=== PATIENT | female | born 1990 | race Caucasian/White ===

== ENCOUNTER 2018-04-11 09:40 | Inpatient (IN) | payer BC ==
--- NOTE | 2018-04-11 12:09 | PDOC.FPROB ---
FMR OB H&P: HPI - History of Present Illness Chief Complaint: sent from clinic History of Present Illness: 27 yo at 8.1w by unsure LMP presents from clinic for concern of elevated BP and a1c at initial OB visit. She reports a history of GDM and GHTN with last (del 2015) but denies any elevated BP since that time. She thinks she was checked for DM after last (with random accuchecks) and was told her BG was always fine. She endorses polyuria, polydypsia, nausea with rare vomiting and occasional headaches. She has a history of "ocular" migraines but has not had one this . 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 denies: fever/chills Eyes: denies: eye pain, vision changes ENT: denies: nasal congestion, rhinorrhea Cardiovascular: denies: chest pain, palpitation Respiratory: denies: cough, congestion Gastrointestinal: reports: bloating, constipation. denies: abdominal pain Genitourinary (Female): reports: polyuria. denies: dysuria, hematuria, vaginal discharge, vaginal bleeding Musculoskeletal: denies: pain, tenderness Neurologic: denies: numbness, syncope Integumentary: denies: itching, rash, discoloration Endocrine: reports: polydipsia, polyuria. denies: cold intolerance, heat intolerance Psychological: reports: depression, other (denies SI/HI). denies: anxiety FMR OB H&P: Vital Signs - Maternal Vital signs: BP 127/65 P 74 T 98.7 RR 20 SPO2 96% on RA FMR OB H&P: Physical Exam - Physical Exam General: NAD, awake, alert and oriented HEENT: normocephalic and atraumatic, MMM, grossly normal hearing Neck: supple, trachea midline Chest: non-tender to palpation Heart: RRR, normal S1/S2 General: CTAB, no respiratory distress Abdomen: soft, non-tender Musculoskeletal: normal gait and station, pulses present Neurological: DTR +2, no focal deficit Skin: no rash, good tugor Psychiatric: intact recent and remote memory, good judgement and insight, normal mood and affect FMR OB H&P: A/P - Problem List (1) Diabetes mellitus affecting Current Visit: Yes Status: Acute Code(s): O24.919 - UNSP DIABETES MELLITUS IN , UNSPECIFIED TRIMESTER (2) Elevated blood pressure affecting in first trimester, antepartum Current Visit: Yes Status: Acute Code(s): O16.1 - UNSPECIFIED MATERNAL HYPERTENSION, FIRST TRIMESTER (3) Body mass index (BMI) 50-59.9, adult Current Visit: Yes Status: Acute Code(s): Z68.43 - BODY MASS INDEX (BMI) 50- 59.9, ADULT (4) Asthma affecting in first trimester Current Visit: Yes Status: Acute Code(s): O99.511 - DISEASES OF THE RESP SYS COMP , FIRST TRIMESTER; J45.909 - UNSPECIFIED ASTHMA, UNCOMPLICATED (5) Depression affecting Current Visit: Yes Status: Acute Code(s): O99.340 - OTH MENTAL DISORDERS COMPLICATING , UNSP TRIMESTER; F32.9 - MAJOR DEPRESSIVE DISORDER, SINGLE EPISODE, UNSPECIFIED (6) PCOS (polycystic ovarian syndrome) Current Visit: Yes Status: Acute Code(s): E28.2 - POLYCYSTIC OVARIAN SYNDROME Disposition: 27 yo at 8.1w by LMP here with likely cHTN and DM affecting 1. + test - 1T sono pending - PNV - Colace PRN constipation, monitor for n/v 2. Diabetes mellitus, Class B - Almost certainly pregestational at this point - Will need retinopathy screen outpatient - ACHS accuchecks and will plan to initiate insulin regimen here - Referral to MFM in place by PCP - ASA starting at 12 weeks 3. Elevated BP in clinic (141/90) - Will monitor q4h vitals here and discuss initiation of BP meds if indicated - 24h urine protein - CMP - TSH - EKG ordered 4. PCOS - aware 5. H/o C/S at 37.2w - Will look for records, presume LTCS at [facility] with Dr. Kidd - For arrest of dilation per patient - Monitor placentation 6. Migraines - aware 7. Depression - Continue sertraline, discussed r/b/a - No SI/HI 8. Asthma - No inhaler use in 2-3 years Discussion: Date/Time: 04/11/18 1207 This H&P was discussed with Dr. Chou who agree with the above documentation and plan. Signature: Mercedes Bone MD, PGY-3 Addendum - Attending - Attending Attestation Date/Time: 04/11/18 1527 I personally evaluated the patient and discussed the management with Dr. Bone. I agree with and repeated the History, Examination, Assessment and Plan documented above with any addition or exceptions noted below. Begin insulin. Labs as described.
[2018-04-11] MEDS ORDERED: Ondansetron PF 4 MG/2 ML Vial IVP PRN (12:27)
[2018-04-11] MEDS ORDERED: Ondansetron ODT 4 MG TAB PO PRN (12:27)
[2018-04-11] MEDS ORDERED: Acetaminophen 325 MG TAB PO PRN (12:27)
[2018-04-11] MEDS ORDERED: Promethazine HCl 25 MG/ML VIAL IM PRN (12:27)
[2018-04-11] MEDS ORDERED: Dextrose 50% Abboject 50 ML SYRINGE SLOW IVP PRN (12:31)
[2018-04-11] MEDS ORDERED: Dextrose 5% in Water 1,000 ML IV PRN (12:31)
[2018-04-11 12:33] LABS: ALT (SGPT) 36 U/L (8-55); AST (SGOT) 58 U/L (5-34); Albumin 3.7 g/dL (3.5-5.0); Alkaline Phosphatase 88 U/L (40-150); Anion Gap 14 mmol/L (10-20); BUN (Urea Nitrogen) 7 mg/dL (7.0-18.7); Bilirubin, Total 0.3 mg/dL (0.2-1.2); Calc. Creatinine Clearance 0 mL/min (70-130); Calcium 10.2 mg/dL (7.8-10.44); Carbon Dioxide 22 mmol/L (22-29); Chloride 103 mmol/L (98-107); Estimated GFR-MDRD Greater than 90; Globulin 3.5 g/dL (2.4-3.5); Glucose 150 mg/dL (70-105); Potassium 3.9 mmol/L (3.5-5.1); Protein, Total 7.2 g/dL (6.0-8.3); Sodium 135 mmol/L (136-145)
--- NOTE | 2018-04-11 14:41 | ULT ---
TRANSABDOMINAL AND TRANSVAGINAL PELVIC ULTRASOUND WITH GRAYSCALE, COLORFLOW, AND SPECTRAL DOPPLER CIERA GING: HISTORY: ultrasound for dates. FINDINGS: The uterus measures 10.6 x 5.3 x 5.5 cm. The right ovary measure 2.7 x 1.6 x 2 cm. The left ovary m easures 2.6 x 4.7 x 2 cm. Flow is demonstrated to both ovaries. No adnexal mass is seen. No free f luid is noted. A single live intrauterine gestation is seen with measurements corresponding to an estimated gestatio nal age of 7 weeks 1 day and an ALLEGRA of 11/27/2018. The crown-rump length measures 1.32 cm. Gestatio nal sac diameter is 1.84 cm. Yolk sac diameter is 0.36 cm. heart rate measures 163 beats per minute. No subchorionic hemorrhage is seen. IMPRESSION: Single live intrauterine of 7 weeks 1 day and estimated date of delivery of 11/27/2018. POS: OFF
--- NOTE | 2018-04-11 17:15 | EKG ---
Test Reason : Blood Pressure : / mmHG Vent. Rate : 075 BPM Atrial Rate : 075 BPM P-R Int : 148 ms QRS Dur : 086 ms QT Int : 404 ms P-R-T Axes : 005 013 023 degrees QTc Int : 451 ms Normal sinus rhythm with sinus arrhythmia Inferior infarct , age undetermined cannot be excluded Abnormal ECG No previous ECGs available Confirmed by BRET ROBERTS ([id number]) on 04/11/2018 5:15:40 PM Referred By: ALEJANDRA Confirmed By:BRET ROBERTS
[2018-04-11 19:00] LABS: Hep C IgG Ab Non-Reactive (NonReactive); Hep C Index 0.03 S/CO (0-0.79)
[2018-04-11] MEDS: Insulin Regular 300 UNITS/3 ML VIAL SC SCH (19:26)
[2018-04-11] MEDS ORDERED: NPH, Human Insulin Isophane 300 UNIT/3 ML VIAL SC SCH (21:00)
--- NOTE | 2018-04-12 07:03 | PDOC.OBMPN ---
FMR OB LDICU PN: Subj - Interval History Hospital Day: 2 Chief Complaint: elevated sugars Indentification: 27 y/o @ 7.2 wks by 1T US (ALLEGRA 11/27/18) Interval History: reports nasal congestion today, denies headahce, visual changes FMR OB LDICU PN: Obj - Maternal Vital signs: BP: 128/58 - Urine output I&O: 04/10/18 04/11/18 04/12/18 06:59 06:59 06:59 Output Total 630 Balance -630 FMR OB LDICU PN: Exam - Physical Exam General: NAD Heart: RRR, normal S1/S2 General: CTAB, no respiratory distress Abdomen: soft, non-tender Skin: no rash, good tugor R OB LDICU PN: Data - Labs Lab results: Laboratory Results - last 24 hr 04/11/18 04/11/18 04/11/18 12:06 12:06 16:02 Sodium 135 L Potassium 3.9 Chloride 103 Carbon Dioxide 22 Anion Gap 14 BUN 7 Creatinine 0.64 Estimated GFR (MDRD) Greater than 90 Glucose 150 H POC Glucose 119 H Calcium 10.2 Total Bilirubin 0.3 AST 58 H ALT 36 Alkaline Phosphatase 88 Serum Total Protein 7.2 Albumin 3.7 Globulin 3.5 Albumin/Globulin Ratio 1.1 L TSH 3rd Generation 1.7667 Hepatitis C Antibody 04/11/18 04/11/18 04/12/18 18:12 21:34 05:41 Sodium Potassium Chloride Carbon Dioxide Anion Gap BUN Creatinine Estimated GFR (MDRD) Glucose POC Glucose 168 H 143 H Calcium Total Bilirubin AST ALT Alkaline Phosphatase Serum Total Protein Albumin Globulin Albumin/Globulin Ratio TSH 3rd Generation Hepatitis C Antibody Non-Reactive R OB LDICU PN:A/P - Problem List (1) Transaminitis Current Visit: Yes Status: Acute Code(s): R74.0 - NONSPEC ELEV OF LEVELS OF TRANSAMNS & LACTIC ACID DEHYDRGNSE (2) Asthma affecting in first trimester Current Visit: Yes Status: Acute Code(s): O99.511 - DISEASES OF THE RESP SYS COMP , FIRST TRIMESTER; J45.909 - UNSPECIFIED ASTHMA, UNCOMPLICATED (3) Body mass index (BMI) 50-59.9, adult Current Visit: Yes Status: Acute Code(s): Z68.43 - BODY MASS INDEX (BMI) 50- 59.9, ADULT (4) Depression affecting Current Visit: Yes Status: Acute Code(s): O99.340 - OTH MENTAL DISORDERS COMPLICATING , UNSP TRIMESTER; F32.9 - MAJOR DEPRESSIVE DISORDER, SINGLE EPISODE, UNSPECIFIED (5) Diabetes mellitus affecting Current Visit: Yes Status: Acute Code(s): O24.919 - UNSP DIABETES MELLITUS IN , UNSPECIFIED TRIMESTER (6) Elevated blood pressure affecting in first trimester, antepartum Current Visit: Yes Status: Acute Code(s): O16.1 - UNSPECIFIED MATERNAL HYPERTENSION, FIRST TRIMESTER (7) PCOS (polycystic ovarian syndrome) Current Visit: Yes Status: Acute Code(s): E28.2 - POLYCYSTIC OVARIAN SYNDROME Discussion: Date/Time: 04/12/18 0659 27 yo at 8.1w by LMP here with likely cHTN and DM affecting 1. sIUP, first trimester - 1T sono reveals sIUP, ALLEGRA 11/27/18 - PNV - Colace PRN constipation, monitor for n/v 2. Diabetes mellitus - presgrestational, Class B - Will need retinopathy screen outpatient - ACHS accuchecks, NPH and regular insulin- titrate - Referral to MFM in place by PCP - ASA starting at 12 weeks 3. Elevated BP in clinic (141/90) - Will monitor q4h vitals here and discuss initiation of BP meds if indicated - 24h urine protein pending - CMP revealed elevated AST, TSH, EKG wnl. Neg Hep C - RUQ US reveals steatosis, cholelithiasis, 6mm dilation of CBD 4. PCOS - aware 5. H/o C/S at 37.2w - Will look for records, presume LTCS at [facility] with Dr. Kidd - For arrest of dilation per patient - Monitor placentation 6. Migraines - aware 7. Depression - Continue sertraline, discussed r/b/a - No SI/HI 8. Asthma - No inhaler use in 2-3 years 9. Transaminitis - work up as above, most likely NAFLD Dispo: Continue to titrate insulin dosage Addendum - Attending - Attending Attestation Date/Time: 04/12/18 1110 I personally evaluated the patient and discussed the management with Dr. Mckeon. I agree with the History, Examination, Assessment and Plan documented above with any addition or exceptions noted below. Likely will need to increase meal time and long acting. Continue to monitor.
--- NOTE | 2018-04-12 07:35 | ULT ---
GALLBLADDER ULTRASOUND: INDICATION: Transaminitis, 27-year-old patient. FINDINGS: There is prominent volume of the liver, approximately 19 cm in length. The liver is increased in ech ogenicity. There is a circumscribed focus of decreased echogenicity within the right hepatic lobe ap proximately 1.2 cm, too small to definitively characterize. Foci of increased echogenicity with post erior acoustic shadowing within the gallbladder present compatible with cholelithiasis. Where visual ized, the gallbladder wall is not pathologically thickened. Ann's sign is reported as negative. The common duct is mildly dilated at 6 mm, as visualized. No ascites of significance is seen. IMPRESSION: 1. Cholelithiasis. 2. Mild dilatation of biliary ductal system. Correlate with biliary laboratory values. 3. Probable hepatic steatosis. There is a circumscribed, slightly greater than 1 cm, hypoechoic foc us of the liver, too small to definitively characterize. This could represent a cyst. As conservati ve management, followup hepatic ultrasound is recommended to confirm size stability. POS: MARTIN
[2018-04-12] MEDS ORDERED: Loratadine 10 MG TAB PO PRN (08:41)
[2018-04-12] MEDS: Insulin Regular 300 UNITS/3 ML VIAL SC SCH ×3 (08:45→16:40)
[2018-04-12] MEDS: Prenatal Vitamin 1 TAB PO SCH ×2 (08:45→09:00)
[2018-04-12] MEDS ORDERED: Non-Formulary Item 1 EACH (Sertraline Hcl [Sertraline Hcl] 50 MG) PO SCH (09:00)
[2018-04-12] MEDS: NPH, Human Insulin Isophane 300 UNIT/3 ML VIAL SC SCH (09:03)
[2018-04-12 14:39] LABS: Urine Total Volume 2150 mL (600-1600)
[2018-04-12 15:04] LABS: Protein, Urine Less than 10 mg/dL (1-14)
[2018-04-12] MEDS ORDERED: NPH, Human Insulin Isophane 300 UNIT/3 ML VIAL SC SCH (21:00)
[2018-04-12] MEDS: Docusate 100 MG CAP PO PRN (21:18)
--- NOTE | 2018-04-13 07:01 | PDOC.OBMPN ---
FMR OB LDICU PN: Subj - Interval History Hospital Day: 2 Chief Complaint: elevated sugar Indentification: 27 y/o @ 8.3 wks by 1T US c/w LMP d(ALLEGRA 11/20/18) Interval History: doing well, abdominal pain imroved, denies hypoglycemic episodes FMR OB LDICU PN: Obj - Maternal Vital signs: BP: 104/55 - Urine output I&O: 04/11/18 04/12/18 04/13/18 06:59 06:59 06:59 Intake Total 360 450 Output Total 955 1350 Balance -595 -900 R OB LDICU PN: Exam - Physical Exam HEENT: normocephalic and atraumatic Heart: RRR, normal S1/S2 General: CTAB, no respiratory distress Abdomen: soft Musculoskeletal: normal gait and station Skin: no rash, good tugor R OB LDICU PN: Data - Labs Lab results: Laboratory Results - last 24 hr 04/12/18 04/12/18 04/12/18 11:02 14:16 16:24 POC Glucose 141 H 183 H Urine Protein Less than 10 Ur Collection Duration 24 Urine Total Volume 2150 H U Tot Protein 24h, Calc TNP 04/12/18 04/13/18 22:16 05:44 POC Glucose 121 H 113 H Urine Protein Ur Collection Duration Urine Total Volume U Tot Protein 24h, Calc R OB LDICU PN:A/P - Problem List (1) Transaminitis Current Visit: Yes Status: Acute Code(s): R74.0 - NONSPEC ELEV OF LEVELS OF TRANSAMNS & LACTIC ACID DEHYDRGNSE (2) Asthma affecting in first trimester Current Visit: Yes Status: Acute Code(s): O99.511 - DISEASES OF THE RESP SYS COMP , FIRST TRIMESTER; J45.909 - UNSPECIFIED ASTHMA, UNCOMPLICATED (3) Body mass index (BMI) 50-59.9, adult Current Visit: Yes Status: Acute Code(s): Z68.43 - BODY MASS INDEX (BMI) 50- 59.9, ADULT (4) Depression affecting Current Visit: Yes Status: Acute Code(s): O99.340 - OTH MENTAL DISORDERS COMPLICATING , UNSP TRIMESTER; F32.9 - MAJOR DEPRESSIVE DISORDER, SINGLE EPISODE, UNSPECIFIED (5) Diabetes mellitus affecting Current Visit: Yes Status: Acute Code(s): O24.919 - UNSP DIABETES MELLITUS IN , UNSPECIFIED TRIMESTER (6) Elevated blood pressure affecting in first trimester, antepartum Current Visit: Yes Status: Acute Code(s): O16.1 - UNSPECIFIED MATERNAL HYPERTENSION, FIRST TRIMESTER (7) PCOS (polycystic ovarian syndrome) Current Visit: Yes Status: Acute Code(s): E28.2 - POLYCYSTIC OVARIAN SYNDROME Discussion: Date/Time: 04/13/18 0659 1. sIUP, first trimester - 1T sono reveals sIUP c/w LMP, ALLEGRA 11/20/18 - PNV - Colace PRN constipation, monitor for n/v 2. Diabetes mellitus - presgrestational, Class B - Will need retinopathy screen outpatient - ACHS accuchecks, NPH and humalog- titrate - Referral to MFM in place by PCP - ASA starting at 12 weeks 3. Elevated BP in clinic (141/90) - Will monitor q4h vitals here and discuss initiation of BP meds if indicated - 24h urine protein collected - CMP revealed elevated AST, TSH, EKG wnl. Neg Hep C - RUQ US reveals steatosis, cholelithiasis, 6mm dilation of CBD 4. PCOS - aware 5. H/o C/S at 37.2w - presumed LTCS at [facility] with Dr. Kidd - For arrest of dilation per patient - Monitor placentation 6. Migraines - aware 7. Depression - Continue sertraline, discussed r/b/a - No SI/HI 8. Asthma - No inhaler use in 2-3 years 9. Transaminitis - work up as above, most likely NAFLD Dispo: Continue to titrate insulin dosage Addendum - Attending - Attending Attestation Date/Time: 04/13/18 3812 I personally evaluated the patient and discussed the management with Dr. Mckeon. I agree with the History, Examination, Assessment and Plan documented above with any addition or exceptions noted below. Increase LA and monitor for need for inc meal time.
[2018-04-13] MEDS: HumaLOG 300 UNITS/3 ML VIAL SC SCH ×3 (09:27→18:19)
[2018-04-13] MEDS: NPH, Human Insulin Isophane 300 UNIT/3 ML VIAL SC SCH (09:29)
[2018-04-13] MEDS: Prenatal Vitamin 1 TAB PO SCH ×2 (09:30)
--- NOTE | 2018-04-13 16:13 | PDOC.EVN ---
Event Note - Event Note Event Note: Discussed 190+ BG with nurse and she notes it was taken 30 minutes after eating because patient felt shaky. 2 hour PP WNL.
[2018-04-13] MEDS ORDERED: NPH, Human Insulin Isophane 300 UNIT/3 ML VIAL SC SCH (21:00)
[2018-04-14] MEDS: HumaLOG 300 UNITS/3 ML VIAL SC SCH ×3 (07:35→17:52)
--- NOTE | 2018-04-14 07:55 | PDOC.OBMPN ---
FMR OB LDICU PN: Subj - Interval History Hospital Day: 3 Chief Complaint: Uncontrolled pregestational DM Indentification: 27 year old at 8.4 wks by LMP/8.1 wk sono Interval History: Patient doing well this AM. No significant overnight events. FMR OB LDICU PN: Obj - Maternal Vital signs: BP: 127/61 HR: 90 RR: 18 Tmax: 99.2F Pox: 100% on RA Wt: 132.313 kg - Urine output I&O: 04/13/18 04/14/18 04/15/18 06:59 06:59 07:59 Intake Total 450 Output Total 1350 Balance -900 FMR OB LDICU PN: Exam - Physical Exam General: NAD, awake, alert and oriented HEENT: MMM, grossly normal vision, grossly normal hearing Heart: RRR, normal S1/S2, no murmurs/rubs/gallops, pulses present, no edema General: CTAB, no respiratory distress, good air movement Abdomen: soft, gravid, non-tender Musculoskeletal: pulses present, FROM in all four extremities Neurological: no tremor, no focal deficit Skin: no rash, capillary refill <2 seconds Psychiatric: intact recent and remote memory, good judgement and insight FMR OB LDICU PN: Data - Labs Lab results: Laboratory Results - last 24 hr 04/13/18 04/13/18 04/13/18 11:01 12:09 13:49 POC Glucose 159 H 106 192 H 04/13/18 04/13/18 04/14/18 15:26 21:23 06:01 POC Glucose 107 160 H 119 H 04/14/18 07:36 POC Glucose 126 H FMR OB LDICU PN:A/P - Problem List (1) Diabetes mellitus affecting Current Visit: Yes Status: Acute Code(s): O24.919 - UNSP DIABETES MELLITUS IN , UNSPECIFIED TRIMESTER (2) Asthma affecting in first trimester Current Visit: Yes Status: Acute Code(s): O99.511 - DISEASES OF THE RESP SYS COMP , FIRST TRIMESTER; J45.909 - UNSPECIFIED ASTHMA, UNCOMPLICATED (3) Body mass index (BMI) 50-59.9, adult Current Visit: Yes Status: Acute Code(s): Z68.43 - BODY MASS INDEX (BMI) 50- 59.9, ADULT (4) Cholelithiasis Current Visit: Yes Status: Acute Code(s): K80.20 - CALCULUS OF GALLBLADDER W /O CHOLECYSTITIS W/O OBSTRUCTION (5) Depression affecting Current Visit: Yes Status: Acute Code(s): O99.340 - OTH MENTAL DISORDERS COMPLICATING , UNSP TRIMESTER; F32.9 - MAJOR DEPRESSIVE DISORDER, SINGLE EPISODE, UNSPECIFIED (6) Elevated blood pressure affecting in first trimester, antepartum Current Visit: Yes Status: Acute Code(s): O16.1 - UNSPECIFIED MATERNAL HYPERTENSION, FIRST TRIMESTER (7) Hepatic steatosis Current Visit: Yes Status: Acute Code(s): K76.0 - FATTY (CHANGE OF) LIVER, NOT ELSEWHERE CLASSIFIED (8) Transaminitis Current Visit: Yes Status: Acute Code(s): R74.0 - NONSPEC ELEV OF LEVELS OF TRANSAMNS & LACTIC ACID DEHYDRGNSE Disposition: 27 year old at 8.4 wks presents for monitoring of DM type II, uncontrolled 1. sIUP, first trimester - 1T (8.1 wk) sono reveals sIUP c/w LMP, ALLEGRA 11/20/18 - PNV - Colace PRN constipation 2. Diabetes mellitus, type II - presgrestational, Class B - Will need retinopathy screen outpatient - FBG and 2h PP BG checks, NPH and humalog; titrate to achieve FBG <95 and 2h PP BG <120 - Will increase short acting insulin at dinner time to 12 units; will increase NPH at nighttime to 22 units as the 2h PP at dinner time and FBG are not at goal - Referral to MFM in place by PCP - ASA starting at 12 weeks 3. Elevated BP in clinic (141/90) - Will monitor q4h vitals here and discuss initiation of BP meds if indicated - 24h urine protein collected - CMP revealed elevated AST, but TSH, EKG wnl. Neg Hep C - RUQ US reveals steatosis, cholelithiasis, 6mm dilation of CBD; patient currently asymptomatic 4. PCOS - aware 5. H/o C/S at 37.2w - presumed LTCS at [facility] with Dr. Kidd for arrest of dilation per patient - Monitor placentation 6. Migraines - aware; currently asymptomatic 7. Depression - Continue sertraline, discussed r/b/a - No SI/HI - Patient recently seen in [facility] and was doing very well and stable on medication 8. Asthma - No inhaler use in 2-3 years 9. Transaminitis - work up as above, most likely NAFLD Dispo: Continue to titrate insulin dosage and make changes as above. Plan for possible d/c tomorrow with further titration/management as outpatient. Discussion: Date/Time: 04/14/18 4072 This H&P was discussed with Dr. Bautista who agrees with the above documentation and plan. Signature: Uma Aiken, DO PGY-2 Addendum - Attending - Attending Attestation Date/Time: 04/14/18 1047 I personally evaluated the patient and discussed the management with Dr. Aiken I agree with the History, Examination, Assessment and Plan documented above with any addition or exceptions noted below. 27 year old at 8.4 wks by LMP/8.1 wk sono with white class B diabetes. Glucose reviewed and agree with plan to increase PM NPH and dinnertime fast acting as those values not at goal. Pt should also be eating a small snack with protein/fat/CHO at bedtime to lower her fasting glucose. Pt has multiple elevated values but that is due to glucose being checked at inappropriate times. Will discuss with nursing to check fasting and 2 hrs post prandially only. Dispo: Continue inpatient insulin titration. Anticipate d/c to home tomorrow pending glucose levels. ]
[2018-04-14] MEDS: Prenatal Vitamin 1 TAB PO SCH ×2 (09:16→09:21)
[2018-04-14] MEDS: Docusate 100 MG CAP PO PRN (09:20)
[2018-04-14] MEDS: NPH, Human Insulin Isophane 300 UNIT/3 ML VIAL SC SCH (09:21)
[2018-04-14] MEDS ORDERED: HumaLOG 300 UNITS/3 ML VIAL SC SCH ×2 (17:00)
[2018-04-14] MEDS ORDERED: NPH, Human Insulin Isophane 300 UNIT/3 ML VIAL SC SCH (21:00)
[2018-04-15] MEDS ORDERED: HumaLOG 300 UNITS/3 ML VIAL SC SCH (07:30)
[2018-04-15 08:09] VITALS: BP 120/56; TEMP 98.8
--- NOTE | 2018-04-15 08:29 | PDOC.OBAPN ---
Addendum entered and electronically signed by Uma Aiken DO 04/15/18 08 :47: Date/Time: 04/15/18826 This H&P was discussed with Dr. Bautista who agrees with the above documentation and plan. Uma Aiken DO PGY-2 Original Note: FMR OB AP PN: Sub - Interval History Hospital Day: 4 Chief Complaint: Uncontrolled Pregestational DM Indentification: 27 year old at 8.5 wks by LMP/8.1 wk sono Interval History: Doing well. No significant overnight events. FMR OB AP PN: Obj - Maternal Vital signs: BP: 119/59 HR: 82 RR: 18 Tmax: 98.3F Pox: 100% on RA Wt: 132.3 kg - Urine output I&O: 04/14/18 04/15/18 04/16/18 05:59 06:59 06:59 Output Total Balance FMR OB AP PN: Exam - Physical Exam General: NAD, awake, alert and oriented HEENT: MMM, grossly normal vision, grossly normal hearing Heart: RRR, pulses present, no edema General: no respiratory distress, good air movement Abdomen: soft, non-tender Musculoskeletal: pulses present, FROM in all four extremities Neurological: no tremor, no focal deficit Skin: no rash, capillary refill <2 seconds Lymphatic: no unusual bruising or bleeding, no purpura Psychiatric: intact recent and remote memory, good judgement and insight FMR OB AP PN: Data - Labs Lab results: Laboratory Results - last 24 hr 04/14/18 04/14/18 04/14/18 07:36 11:07 15:30 POC Glucose 126 H 112 H 97 04/14/18 04/15/18 04/15/18 20:31 06:17 07:57 POC Glucose 84 98 103 FMR OB AP PN: A/P - Problem List (1) Diabetes mellitus affecting Status: Acute Code(s): O24.919 - UNSP DIABETES MELLITUS IN , UNSPECIFIED TRIMESTER (2) Asthma affecting in first trimester Status: Acute Code(s): O99.511 - DISEASES OF THE RESP SYS COMP , FIRST TRIMESTER; J45.909 - UNSPECIFIED ASTHMA, UNCOMPLICATED (3) Body mass index (BMI) 50-59.9, adult Status: Acute Code(s): Z68.43 - BODY MASS INDEX (BMI) 50-59.9, ADULT (4) Cholelithiasis Status: Acute Code(s): K80.20 - CALCULUS OF GALLBLADDER W/O CHOLECYSTITIS W/O OBSTRUCTION (5) Depression affecting Status: Acute Code(s): O99.340 - [facility] MENTAL DISORDERS COMPLICATING , UNSP TRIMESTER; F32.9 - MAJOR DEPRESSIVE DISORDER, SINGLE EPISODE, UNSPECIFIED (6) Elevated blood pressure affecting in first trimester, antepartum Status: Acute Code(s): O16.1 - UNSPECIFIED MATERNAL HYPERTENSION, FIRST TRIMESTER (7) Hepatic steatosis Status: Acute Code(s): K76.0 - FATTY (CHANGE OF) LIVER, NOT ELSEWHERE CLASSIFIED (8) Transaminitis Status: Acute Code(s): R74.0 - NONSPEC ELEV OF LEVELS OF TRANSAMNS & LACTIC ACID DEHYDRGNSE Disposition: 27 year old at 8.5 wks presents for monitoring of DM type II, uncontrolled 1. sIUP, first trimester - 1T (8.1 wk) sono reveals sIUP c/w LMP, ALLEGRA 11/20/18 - PNV - Colace PRN constipation 2. Diabetes mellitus, type II - presgrestational, Class B - Will need retinopathy screen outpatient - FBG and 2h PP BG checks, NPH and humalog; titrate to achieve FBG <95 and 2h PP BG <120 - Advised patient to decrease dinner time insulin to 10 units from 12 units to avoid hypoglycemia - Referral to MFM in place by PCP - ASA starting at 12 weeks - Patient advised to continue keeping log of BG and follow up with PCP in next week; patient has appt with PCP for next Monday 3. Elevated BP in clinic (141/90) - Will monitor q4h vitals here and discuss initiation of BP meds if indicated; BP has been well controlled - 24h urine protein collected <300 - CMP revealed elevated AST, but TSH, EKG wnl. Neg Hep C - RUQ US reveals steatosis, cholelithiasis, 6mm dilation of CBD; patient currently asymptomatic 4. PCOS - aware 5. H/o C/S at 37.2w - presumed LTCS at [facility] with Dr. Kidd for arrest of dilation per patient - Monitor placentation 6. Migraines - aware; currently asymptomatic 7. Depression - Continue sertraline, discussed r/b/a - No SI/HI - Patient recently seen in [facility] and was doing very well and stable on medication 8. Asthma - No inhaler use in 2-3 years 9. Transaminitis - work up as above, most likely NAFLD Dispo: Plan for d/c home today with close follow up. Advised patient to check FBG and 2h PP BG over the course of the next week and bring log to appt with Dr. Barrios next Monday. Discussion: Date/Time: 04/15/18826 This H&P was discussed with [] and [] who agree with the above documentation and plan. Addendum - Attending - Attending Attestation Date/Time: 04/16/18840 I personally evaluated the patient and discussed the management with Dr. Aiken I agree with the History, Examination, Assessment and Plan documented above with any addition or exceptions noted below Glucose at goal or below. Stable for d/c o home today
[2018-04-15] MEDS: NPH, Human Insulin Isophane 300 UNIT/3 ML VIAL SC SCH (08:54)
[2018-04-15] MEDS: Prenatal Vitamin 1 TAB PO SCH ×2 (08:54→09:03)
--- NOTE | 2018-04-16 14:40 | DIS ---
DATE OF ADMISSION: 04/11/2018 DATE OF DISCHARGE: 04/15/2018 ADMITTING ATTENDING: Dr. Gatito Chou. DISCHARGE ATTENDING: Dr. Zuleyka Bautista. RESIDENT: Dr. Uma Aiken. PROCEDURES: 1. EKG showed normal sinus rhythm with sinus arrhythmia and OR interval of 148 milliseconds and a QTc of 451 milliseconds. 2. Pelvis ultrasound showed a single live intrauterine at 7 weeks and 1 day and an estimated date of delivery of 11/27/2018. 3. Abdominal ultrasound showed cholelithiasis with mild dilation of biliary duct system. There was probable hepatic steatosis. There was circumscribed, slightly greater than 1 cm, hypoechoic focus of the liver that was too small to definitively characterize. This could represent a cyst. Followup hepatic ultrasound recommended to confirm size and stability. DISCHARGE DIAGNOSES: 1. Pre-gestational diabetes class B. 2. Single intrauterine . 3. Elevated blood pressure without a diagnosis of hypertension. 4. Polycystic ovarian syndrome. 5. History of at 37 and 2 weeks. 6. Migraines. 7. Depression. 8. Asthma. 9. Cholelithiasis. 10. Liver steatosis. DISCHARGE MEDICATIONS: 1. vitamin 1 tablet p.o. daily. 2. Sertraline 50 mg p.o. daily. 3. Humalog 8 units before breakfast, 8 units for lunch, 10 units before dinner. 4. NPH, human insulin 22 units subcu at bedtime. 5. NPH, human insulin 16 units subcu q.a.m. HISTORY OF PRESENT ILLNESS/HOSPITAL COURSE: This is a very pleasant 27-year-old female who was sent over from [facility]. She is a G2, P1-0-0-1, estimated to be 8 weeks and 1 day by an unsure LMP. The patient was sent over initially for elevated blood pressure and a hemoglobin A1c noted to be greater than 8%. The patient did report a history of gestational diabetes and gestational hypertension with previous . The patient denied any elevated blood pressure since that time. The patient thinks she was checked for diabetes after her last and was told that her blood glucose was always fine. She does endorse polyuria, polydipsia, nausea with rare vomiting and occasional headaches. The patient has a history of ocular migraines, but has not had one during this . The patient was admitted to antepartum for monitoring of blood glucose and blood pressures. A pelvic ultrasound was performed to confirm dating. Q.4 hours vitals were done during the hospitalization and no further elevated pressures were noted except for one at 144/62. Pre-E labs were performed for baseline evaluation and all were noted to be negative. The patient was started on NPH and Humalog for control of her class B pre-gestational diabetes. She was titrated to a goal with fasting blood glucose less than 95 and 2-hour postprandial blood glucose less than 120. The patient was monitored on this insulin regimen and did very well. She is advised to continue keeping a log of her blood glucose and to follow up with her primary care upon discharge from the hospital. The patient was also advised to start aspirin at 12 weeks' gestation. The patient is to follow up with [facility] as an outpatient. The patient does have a history of at 37 and 2 weeks. This was presumptively done at [facility] by Dr. Kidd and was a low-transverse delivery for arrest of dilation. The patient is to continue following routinely for the visits with Dr. Barrios at [facility]. The importance of good sugar control was discussed at length with patient and she understands the risks of not following up, to include stillbirth. DISPOSITION: Stable. DISCHARGE INSTRUCTIONS: 1. Location: Home. 2. Activity: No restrictions. 3. Diet: Consistent carb. FOLLOWUP: The patient is to follow up with Dr. Barrios at [facility] within 7 days of discharge from the hospital. Job ID: [id number] MTDD
== END 2018-04-15 10:25 | disposition home or self-care (01) | DRG 832 ==
LOC: 3SE 11:25
PROVIDERS: ADMIT Emergency Medicine; ATTEND Emergency Medicine
DX: O24.111 Pre-existing type 2 diabetes mellitus, in pregnancy, first trimester (principal); O16.1 Unspecified maternal hypertension, first trimester; E11.9 Type 2 diabetes mellitus without complications; Z3A.08 8 weeks gestation of pregnancy; O34.211 Maternal care for low transverse scar from previous cesarean delivery; O99.341 Other mental disorders complicating pregnancy, first trimester; F32.9 Major depressive disorder, single episode, unspecified; O99.511 Diseases of the respiratory system complicating pregnancy, first trimester; J45.909 Unspecified asthma, uncomplicated; R74.0 Nonspecific elevation of levels of transaminase and lactic acid dehydrogenase [LDH]; O99.281 Endocrine, nutritional and metabolic diseases complicating pregnancy, first trimester; E28.2 Polycystic ovarian syndrome; O99.611 Diseases of the digestive system complicating pregnancy, first trimester; K80.20 Calculus of gallbladder without cholecystitis without obstruction; O99.351 Diseases of the nervous system complicating pregnancy, first trimester; G43.909 Migraine, unspecified, not intractable, without status migrainosus
CPT/HCPCS: 36415; 36416; 76705; 76856; 80053; 84156; 84443; 86803; 93005; 93010; J1815; Q0162

== ENCOUNTER 2018-06-16 20:07 | Emergency (ER) | payer BC ==
[2018-06-16 20:56] LABS: #Basophils 0.1 thou/uL (0.0-0.2); #Eosinphils 0.2 thou/uL (0.0-0.7); #Lymphocytes 3.4 thou/uL (1.20-3.40); #Monocytes 0.6 thou/uL (0.11-0.59); #Neutrophils 6.6 thou/uL (1.40-6.50); %Basophils 0.6 % (0.0-1.0); %Eosinophils 1.5 % (0.0-10.0); %Monocytes 5.8 % (0.0-10.0); %Neutrophils 61.2 % (42.0-75.0); Hemoglobin 11.2 g/dL (12.0-16.0); Mean Corpuscular HGB CONC 33.1 g/dL (32.0-36.0); Mean Corpuscular Hemoglobin 26.5 pg (27.0-31.0); Mean Corpuscular Volume 80.1 fL (78.0-98.0); Mean Platelet Volume 7.3 fL (7.4-10.4); Platelet Count 429 thou/uL (130-400); RBC Distribution Width 12.6 % (11.5-14.5); Red Blood Cell (RBC) Count 4.24 mill/uL (4.20-5.40); White Blood Cell (WBC) Count 10.8 thou/uL (4.8-10.8)
[2018-06-16 21:10] LABS: Bilirubin Negative (Negative); Blood, Urine Negative (Negative); Clarity CLEAR (Clear); Glucose, Urine (Dipstick) Negative (Negative); Leukocyte Negative (Negative); Nitrite Negative (Negative); Protein, Urine (Dipstick) Negative (Neg-Trace); Urobilinogen 0.2 mg/dL (0.2-1.0)
[2018-06-16 21:17] LABS: ALT (SGPT) 12 U/L (8-55); AST (SGOT) 12 U/L (5-34); Albumin 3.5 g/dL (3.5-5.0); Alkaline Phosphatase 71 U/L (40-150); Anion Gap 12 mmol/L (10-20); BUN (Urea Nitrogen) 5 mg/dL (7.0-18.7); Bilirubin, Total Less than 0.2 mg/dL (0.2-1.2); Calc. Creatinine Clearance 0 mL/min (70-130); Calcium 9.3 mg/dL (7.8-10.44); Carbon Dioxide 23 mmol/L (22-29); Chloride 106 mmol/L (98-107); Estimated GFR-MDRD Greater than 90; Globulin 3.3 g/dL (2.4-3.5); Glucose 94 mg/dL (70-105); Protein, Total 6.8 g/dL (6.0-8.3); Sodium 137 mmol/L (136-145)
--- NOTE | 2018-06-16 21:55 | ULT ---
LIMITED OB ULTRASOUND: 06/16/18 HISTORY: Abdominal pain. Patient is 17 weeks . TECHNIQUE: Sagittal and transverse imaging of a gravid uterus is performed. FINDINGS: Single intrauterine gestation. Variable presentation. Placenta is on the left side. Limited evaluation of the cervix. Presence or absence of previa cannot be assessed on this exam. heart tones with a rate of 160 beats per minute. BIOMETRY: BPD 3.79 cm 17 weeks, 4 days Head circumference 14.30 cm 17 weeks, 4 days Abdominal circumference 11.77 cm 17 weeks, 4 days Femur length 2.49 cm 17 weeks, 4 days Average age by sonography is 17 weeks, 4 days. Estimated weight is 198 grams. IMPRESSION: 1. Limited evaluation due to body habitus. Single intrauterine gestation with heart tones. Average age by sonography is 17 weeks, 4 days. 2. Limited evaluation of the cervix. The presence or absence of previa cannot be assessed on thi s examination. POS: [facility]
--- NOTE | 2018-06-16 22:40 | MRI ---
Exam: MRI abdomen without contrast HISTORY: Right lower quadrant pain, x2 weeks ago. Since then, intermittent diffuse abdominal pain. 17 week patient Comparison none Correlation: Gallbladder ultrasound 04/12/2018 FINDINGS: There is appropriate signal intensity in the visualized solid organs. Note, there are small T2 hyperi ntensities throughout the pancreas, incompletely evaluated. No evidence of hydronephrosis There is evidence of cholelithiasis. MRCP is limited in evaluation. Common bile duct cannot be adequately assessed on the images provided Visualized alimentary canal does not demonstrate any obstruction. Ileocecal junction is normal. Appen ruddy is not appreciated. Nevertheless, no obvious inflammation at the cecal apex. Intrauterine gestation is noted IMPRESSION: 1. Cholelithiasis. Suboptimal MRCP 2. No MR evidence of inflammation of the cecal apex. Appendix is difficult to appreciate on the curre nt examination. Report will be finalized after images reviewed with abdomen radiologist. Prelim findings discussed with Dr. Allen 06/16/2018 at 10:38 PM ADDENDUM: Examination was reviewed in conjunction with Dr. Francis who is in agreement. Transcribed Date/Time: 06/16/2018 10:46 PM
== END 2018-06-16 22:55 | disposition home or self-care (01) ==
LOC: ERS 20:07
DX: O99.89 Other specified diseases and conditions complicating pregnancy, childbirth and the puerperium (principal); R10.31 Right lower quadrant pain; Z3A.17 17 weeks gestation of pregnancy
CPT/HCPCS: 36415; 72195; 74181; 76815; 80053; 81003; 85025; 87086

== ENCOUNTER 2018-08-20 10:32 | Day surgery (SDC) | payer BC ==
[2018-08-20 11:09] VITALS: BMI 50.8
[2018-08-20] MEDS ORDERED: hydrALAZINE 20 MG/ML VIAL SLOW IVP PRN (11:59)
--- NOTE | 2018-08-20 12:04 | PDOC.FPROB ---
FMR OB H&P: HPI - History of Present Illness Chief Complaint: BP elevated History of Present Illness: 27 y/o , at 26.6 by 7.1 wk sono, presents to L&D after being sent over from [facility] because of a BP of 156/86. Due date 11/20/18. FHT 155 on initial triage monitoring. The patient states her BP was 162/107 this morning and 140/87 last night. She states that on Monday she started having a severe headache that was associated with dizziness and visual disturbances. This is new and has never occurred before. She states that the dizziness and visual disturbances fade away if she sits down and rests for a few minutes. The patient stated she does not have a headache or visual changes at the time I saw her. X2 days ago the patient had a "GI bug," with nausea, vomiting and diarrhea, that has now subsided. She has a history of pre-eclampsia with her last , gestational diabetes (on insulin), Cholelithiasis and Chronic HTN. Patient denies any any abdominal pain, seizures, chest pain, loss of fluid, vaginal bleeding, or contractions. She states she has been feeling the baby move. Primary Care Physician: Dr. Sonny Mckeon DO. FMR OB H&P: Current - Care : 2 Para: 1 Gestational age: 26.6 Due date: 11/20/18 Dating Criteria: 7.1 wk sono - OB Labs Blood type: O RH: positive Antibody Screen: negative HIV: negative RPR: negative HepBsAg: negative Rubella: immune Quad screen: unknown Urine drug screen: not done Gonorrhea: negative Chlamydia: negative Pap Smear: negative A1c: 5.9 - First Trimester Ultrasound First trimester: 7.1 week sono 26.6 wks FMR OB H&P: History - Past Medical History PMH: Pre-eclampsia with first , requiring a at 36 weeks. 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 - Family History Family History: Patient denies any family medical history. Denies any HTN or DM in family. FMR OB H&P: Medications - Current Home Medications: Medication Instructions Recorded Confirmed Type Vitamin 1 tablet PO DAILY 04/11/18 04/11/18 History Sertraline HCl 50 mg PO DAILY 04/11/18 04/11/18 History Aspirin [Adult Aspirin Regimen] 81 mg PO 08/20/18 History HumaLOG [HumaLOG Vial] 8 unit SC 1700 08/20/18 History HumaLOG [HumaLOG Vial] 10 units SC 0730,1130 08/20/18 History NPH, Human Insulin Isophane 20 unit SC DAILY 08/20/18 History [HumuLIN N] NPH, Human Insulin Isophane 25 unit SC HS 08/20/18 History [HumuLIN N] Allergies/Adverse Reactions: Allergies Allergy/AdvReac Type Severity Reaction Status Date / Time No Known Allergies Allergy Unverified 08/20/18 11:08 FMR OB H&P: ROS - Review of Systems General: denies: fever/chills Eyes: reports: vision changes ("Like looking through a fish bowl"). denies: eye pain, double vision, scotomas, floaters ENT: denies: sore throat Cardiovascular: denies: chest pain, palpitation, edema Respiratory: denies: cough, shortness of breath Gastrointestinal: reports: nausea, vomiting, diarrhea. denies: abdominal pain Genitourinary (Female): denies: incontinence, dysuria, hematuria, vaginal discharge, vaginal bleeding, contractions Musculoskeletal: reports: swelling (bilateral feet). denies: pain Neurologic: reports: weakness (with dizzy spells), headache. denies: numbness, syncope, seizures, loss of counsciousness Integumentary: denies: rash, discoloration Psychological: reports: depression, anxiety FMR OB H&P: Vital Signs - Maternal Vital signs: 118/55 BP, 103 HR - Heart Tones Baseline: 155 [place] contractions every: no contractions FMR OB H&P: Physical Exam - Physical Exam General: NAD, awake, alert and oriented HEENT: normocephalic and atraumatic, PERRLA, EOMI, MMM, conjunctiva clear, no scleral icterus, grossly normal vision, grossly normal hearing, good dention Neck: supple, FROM, trachea midline, no LAD, no JVD, other (Thyroid normal size) Chest: non-tender to palpation, no lesions Heart: RRR, normal S1/S2, no murmurs/rubs/gallops, pulses present, no edema General: CTAB, no respiratory distress, good air movement, no rales/rhonchi, no wheezing, no retractions Abdomen: soft (obese abdomen), gravid, bowel sound present Deviation from normal: Tenderness to palpation over RUQ. Musculoskeletal: normal gait and station, pulses present, FROM in all four extremities, no atrophy Skin: no rash, no jaundice Lymphatic: no unusual bruising or bleeding, no purpura, no petechia Psychiatric: intact recent and remote memory, good judgement and insight, normal mood and affect FMR OB H&P: Results - Labs Lab results: Laboratory Tests 08/20/18 11:53 Glucose 111 H Laboratory Tests 08/20/18 08/20/18 11:53 11:53 WBC 12.5 H Hgb 10.9 L Hct 34.6 L Plt Count 454 H Uric Acid 2.1 L FMR OB H&P: A/P - Problem List (1) Chronic hypertension affecting Current Visit: Yes Status: Chronic Code(s): O10.919 - UNSP PRE-EXISTING HTN COMP , UNSP TRIMESTER (2) Diabetes mellitus affecting Current Visit: No Status: Chronic Code(s): O24.919 - UNSP DIABETES MELLITUS IN , UNSPECIFIED TRIMESTER (3) Cholelithiasis Current Visit: No Status: Chronic Code(s): K80.20 - CALCULUS OF GALLBLADDER W/O CHOLECYSTITIS W/O OBSTRUCTION (4) Depression affecting Current Visit: No Status: Acute Code(s): O99.340 - OTH MENTAL DISORDERS COMPLICATING , UNSP TRIMESTER; F32.9 - MAJOR DEPRESSIVE DISORDER, SINGLE EPISODE, UNSPECIFIED (5) Anxiety disorder affecting , antepartum Current Visit: Yes Status: Chronic Code(s): O99.340 - OTH MENTAL DISORDERS COMPLICATING , UNSP TRIMESTER; F41.9 - ANXIETY DISORDER, UNSPECIFIED (6) Body mass index (BMI) 50-59.9, adult Current Visit: No Status: Chronic Code(s): Z68.43 - BODY MASS INDEX (BMI) 50 -59.9, ADULT (7) IUP (intrauterine ), incidental Current Visit: Yes Status: Acute Code(s): Z34.90 - ENCNTR FOR SUPRVSN OF NORMAL , UNSP, UNSP TRIMESTER Discussion: 27 y/o F , @ 26.6 wks dated by 7.1 wk crowo, being triaged in L&D for elevated BP's found in clinic visit this morning with [facility]. 1. Chronic HTN, rule out pre-eclampsia -Ordered CBC, CMP, Urine protein quant and urine creatinine -Monitor BP's -BP's Observed so far 126/63, 118/55. -No Headache or vision disturbance while being seen in hospital. 2. IUP, 2nd trimester -26.6 wks 3. Gestational DM, insulin dependent -on Humalog 10, 8, 10 units TID; Levamir 20, 25 units 4. Hx of Pre-eclampsia in prior -ASA 81 mg daily 5. Cholelithiasis -RUQ abdominal pain, most likely caused by cholelithiasis vs. Pre-eclampsia vs. HELLP Syndrome. Will rule out via labs. -Sonogram on 04/12/18 6. Anxiety D/O -On Sertraline 50 mg Daily -Patient states her anxiety and depression have been slightly increased since being . 7. Major Depressive Disorder -Sertraline 50 mg daily 8. Full Code
[2018-08-20 12:10] LABS: #Eosinphils 0.1 thou/uL (0.0-0.7); #Lymphocytes 2.5 thou/uL (1.20-3.40); #Monocytes 0.6 thou/uL (0.11-0.59); #Neutrophils 9.3 thou/uL (1.40-6.50); %Basophils 0.4 % (0.0-1.0); %Eosinophils 0.7 % (0.0-10.0); %Lymphocytes 20.2 % (21.0-51.0); %Monocytes 4.5 % (0.0-10.0); %Neutrophils 74.3 % (42.0-75.0); Hemoglobin 10.9 g/dL (12.0-16.0); Mean Corpuscular HGB CONC 31.4 g/dL (32.0-36.0); Mean Corpuscular Hemoglobin 24.9 pg (27.0-31.0); Mean Corpuscular Volume 79.1 fL (78.0-98.0); Mean Platelet Volume 7.6 fL (7.4-10.4); Platelet Count 454 thou/uL (130-400); RBC Distribution Width 12.6 % (11.5-14.5); Red Blood Cell (RBC) Count 4.37 mill/uL (4.20-5.40); White Blood Cell (WBC) Count 12.5 thou/uL (4.8-10.8)
[2018-08-20 12:45] LABS: ALT (SGPT) 10 U/L (8-55); AST (SGOT) 11 U/L (5-34); Albumin 3.3 g/dL (3.5-5.0); Alkaline Phosphatase 83 U/L (40-150); Anion Gap 12 mmol/L (10-20); BUN (Urea Nitrogen) 6 mg/dL (7.0-18.7); Bilirubin, Total 0.2 mg/dL (0.2-1.2); Calc. Creatinine Clearance 326 mL/min (70-130); Calcium 9.6 mg/dL (7.8-10.44); Carbon Dioxide 21 mmol/L (22-29); Chloride 106 mmol/L (98-107); Estimated GFR-MDRD Greater than 90; Globulin 3.4 g/dL (2.4-3.5); Glucose 111 mg/dL (70-105); Potassium 3.6 mmol/L (3.5-5.1); Protein, Total 6.7 g/dL (6.0-8.3); Sodium 135 mmol/L (136-145); Uric Acid 2.1 mg/dL (2.6-6.0)
[2018-08-20 13:03] LABS: Creatinine, Urine 135.18 mg/dL (47-110)
== END 2018-08-20 15:07 | disposition home or self-care (01) ==
LOC: L&D/OP 10:32
PROVIDERS: ATTEND Family Medicine
DX: O10.012 Pre-existing essential hypertension complicating pregnancy, second trimester (principal); O24.414 Gestational diabetes mellitus in pregnancy, insulin controlled; O99.612 Diseases of the digestive system complicating pregnancy, second trimester; K80.20 Calculus of gallbladder without cholecystitis without obstruction; O99.342 Other mental disorders complicating pregnancy, second trimester; F41.9 Anxiety disorder, unspecified; F32.9 Major depressive disorder, single episode, unspecified; Z3A.26 26 weeks gestation of pregnancy; Z79.4 Long term (current) use of insulin; Z79.82 Long term (current) use of aspirin
CPT/HCPCS: 36415; 80053; 82570; 84156; 84550; 85025; 99283

== ENCOUNTER 2018-10-16 17:41 | Day surgery (SDC) | payer BC ==
[2018-10-16 18:17] VITALS: BMI 52.5
[2018-10-16] MEDS ORDERED: hydrALAZINE 20 MG/ML VIAL SLOW IVP PRN (18:32)
[2018-10-16] MEDS ORDERED: Sodium Chloride 0.9% 1,000 ML IV SCH (18:45)
--- NOTE | 2018-10-16 20:21 | ULT ---
EXAM: NONSTRESS BIOPHYSICAL PROFILE: 10/16/18 HISTORY: Evaluate for growth. COMPARISON: None. TECHNIQUE: Nonstress biophysical profile is performed. FINDINGS: Examination is limited by body habitus. Single intrauterine gestation. Vertex presentation. Cervix cannot be assessed due to shadowing. Poste rior placenta. Presence of absence of previa cannot be confirmed or excluded on this exam. heart tones with a rate of 140 beats per minute. Amniotic fluid index is 17.6. BIOMETRY: BPD 8.87 cm 35 weeks, 6 days Head circumference 31.08 cm 34 weeks, 5 days Abdominal circumference 32.53 cm 36 weeks, 3 days Femur length 6.80 cm 35 weeks, 0 days Estimated weight is 2774 grams. Average age by sonography is 35 weeks, 4 days. NONSTRESS BIOPHYSICAL PROFILE: tone - 2 breathing - 2 movement - 2 Amniotic fluid - 2 Total score 8 out of 8. IMPRESSION: Nonstress biophysical profile with a total score of 8 out of 8. POS: [facility]
--- NOTE | 2018-10-16 20:22 | ULT ---
ULTRASOUND ABDOMEN LIMITED: (RIGHT UPPER QUADRANT) DATE: 10/16/2018 HISTORY: 27-year-old female with gallstones FINDINGS: Intra-abdominal contents poorly visualized because of body habitus and because of obscuring by shadow ing from bowel gas. Pancreas and common duct completely obscured by shadowing from bowel gas. Unremarkable visualized portions of liver. Multiple gallstones causing acoustic shadowing that obscures much of the gallbladder. No sonographic Ann's sign. No hydronephrosis of right kidney. IMPRESSION: Positive for cholelithiasis
--- NOTE | 2018-10-16 20:32 | PDOC.FPROB ---
FMR OB H&P: HPI - History of Present Illness Chief Complaint: decreased FM Indentification: 27 at 34.0 wga via 7.1 wk sono History of Present Illness: Pt presents for decreased FM and having BPP 4/10 today in the clinic, so they sent her here. Denies VB, LOF, vaginal discharge, dysuria, hematuria, and contractions. She noted cramping yesterday while eating dinner in her upper abdomen. This resolved after finishing eating dinner. Otherwise, no complaints or concerns. Primary Care Physician: LIZZY Barrios FMR OB H&P: Current - Care : 2 Para: 1 Gestational age: 34.0 wga Due date: 11/27/2018 Dating Criteria: 7.1 wk sono Course/Complications: pregestational DM, cHTN - OB Labs Blood type: O RH: positive Antibody Screen: negative HIV: negative RPR: negative HepBsAg: negative Rubella: immune Urine drug screen: not done Gonorrhea: negative Chlamydia: negative Pap Smear: NILM 1 hour gtt: 175 3 hour GTT: 226, 148, 84 A1c: 6.3 GBS: unknown FMR OB H&P: History - Past Medical History PMH: pregestational DM, cHTN Hx of cholelithiasis early in this - OB History OB History: Previous C/S for failure to progress in labor Induced at 36.0 weeks for DM. Discussed delivery for this and stated she was to schedule a C/S. No TOLAC due to risk - Surgical History Sx History: Prior c/s. - Social History Social History: Denies - Family History Family History: Noncontributory. FMR OB H&P: Medications - Current Home Medications: Medication Instructions Recorded Confirmed Type Vitamin 1 tablet PO DAILY 04/11/18 04/11/18 History Sertraline HCl 50 mg PO DAILY 04/11/18 04/11/18 History Aspirin [Adult Aspirin Regimen] 81 mg PO 08/20/18 History HumaLOG [HumaLOG Vial] 8 unit SC 1700 08/20/18 History HumaLOG [HumaLOG Vial] 10 units SC 0730,1130 08/20/18 History NPH, Human Insulin Isophane 20 unit SC DAILY 08/20/18 History [HumuLIN N] NPH, Human Insulin Isophane 25 unit SC HS 08/20/18 History [HumuLIN N] Allergies/Adverse Reactions: Allergies Allergy/AdvReac Type Severity Reaction Status Date / Time No Known Allergies Allergy Verified 10/16/18 18:15 FMR OB H&P: ROS - Review of Systems General: denies: fever/chills, weight/appetite/sleep changes Eyes: denies: vision changes, double vision ENT: denies: nasal congestion, rhinorrhea, sinus pain/pressure, sore throat Cardiovascular: denies: chest pain, palpitation, edema Respiratory: denies: cough, shortness of breath Gastrointestinal: reports: cramping. denies: abdominal pain, nausea, vomiting, diarrhea, constipation Genitourinary (Female): denies: dysuria, hematuria, vaginal discharge, vaginal pain, vaginal bleeding, contractions Neurologic: denies: weakness Integumentary: denies: itching, rash Psychological: denies: anxiety FMR OB H&P: Vital Signs - Maternal Vital signs: VSS - Heart Tones Baseline: 170 Variability: moderate Acceleration: present Deceleration: absent Category: category 2 [place] contractions every: none FMR OB H&P: Physical Exam - Physical Exam General: NAD, awake, alert and oriented HEENT: normocephalic and atraumatic, conjunctiva clear, no scleral icterus, grossly normal hearing Chest: non-tender to palpation Heart: RRR, normal S1/S2, no murmurs/rubs/gallops General: CTAB, no respiratory distress Abdomen: soft, gravid, non-tender, bowel sound present Musculoskeletal: pulses present, FROM in all four extremities Neurological: no focal deficit Skin: no rash Lymphatic: no unusual bruising or bleeding Psychiatric: intact recent and remote memory, normal mood and affect FMR OB H&P: A/P Disposition: Observe in L&D Discussion: Date/Time: 10/16/18 2030 27 yo at 34.0 wga by 7.1 wk sono sent to L&D for: Decreased FM, BPP 05/16: - Will monitor patient on continuous EFM and tocometry for 2 hours - Fetus tachycardic: will give NS bolus - Will repeat BPP, Limited Ob sono, and abdominal U/S due to patient's cramping felt yesterday - Will order CBC, CMP DM, White Class B: - glucose check cHTN: - q15 min BP checks, currently 120s/70s This H&P was discussed with Dr. Blankenship and Dr. Muhammad who agree with the above documentation and plan. Signature: Yohana Butterfield MD PGY1
[2018-10-16 20:54] LABS: #Eosinphils 0.1 thou/uL (0.0-0.7); #Lymphocytes 3.2 thou/uL (1.20-3.40); #Monocytes 0.7 thou/uL (0.11-0.59); #Neutrophils 7.2 thou/uL (1.40-6.50); %Basophils 0.3 % (0.0-1.0); %Eosinophils 0.8 % (0.0-10.0); %Lymphocytes 28.6 % (21.0-51.0); %Neutrophils 64.4 % (42.0-75.0); Hemoglobin 10.4 g/dL (12.0-16.0); Mean Corpuscular HGB CONC 33.3 g/dL (32.0-36.0); Mean Corpuscular Hemoglobin 25.6 pg (27.0-31.0); Mean Corpuscular Volume 76.8 fL (78.0-98.0); Mean Platelet Volume 7.9 fL (7.4-10.4); Platelet Count 411 thou/uL (130-400); RBC Distribution Width 12.7 % (11.5-14.5); Red Blood Cell (RBC) Count 4.06 mill/uL (4.20-5.40); White Blood Cell (WBC) Count 11.2 thou/uL (4.8-10.8)
[2018-10-16 21:07] LABS: ALT (SGPT) 9 U/L (8-55); AST (SGOT) 10 U/L (5-34); Alkaline Phosphatase 101 U/L (40-150); Anion Gap 13 mmol/L (10-20); BUN (Urea Nitrogen) 8 mg/dL (7.0-18.7); Bilirubin, Total 0.2 mg/dL (0.2-1.2); Calc. Creatinine Clearance 309 mL/min (70-130); Calcium 8.8 mg/dL (7.8-10.44); Carbon Dioxide 21 mmol/L (22-29); Chloride 104 mmol/L (98-107); Estimated GFR-MDRD Greater than 90; Globulin 3.1 g/dL (2.4-3.5); Glucose 82 mg/dL (70-105); Potassium 3.7 mmol/L (3.5-5.1); Protein, Total 6.1 g/dL (6.0-8.3); Sodium 134 mmol/L (136-145)
--- NOTE | 2018-10-17 08:30 | PDOC.OBAPN ---
FMR OB AP PN: Sub - Interval History Hospital Day: 0 Chief Complaint: decreased FM Indentification: 27 at 34.0 wga by 7.1 wk sono FMR OB AP PN: Obj - Maternal Vital signs: VSS - Heart Tones Baseline: 150 Variability: moderate Acceleration: present Deceleration: absent [place] contractions every: none FMR OB AP PN: Exam - Physical Exam General: NAD, awake, alert and oriented FMR OB AP PN: Data - Labs Lab results: Laboratory Results - last 24 hr 10/16/18 10/16/18 20:43 20:43 WBC 11.2 H RBC 4.06 L Hgb 10.4 L Hct 31.2 L MCV 76.8 L MCH 25.6 L MCHC 33.3 RDW 12.7 Plt Count 411 H MPV 7.9 Neutrophils % 64.4 Lymphocytes % 28.6 Monocytes % 6.0 Eosinophils % 0.8 Basophils % 0.3 Neutrophils # 7.2 H Lymphocytes # 3.2 Monocytes # 0.7 H Eosinophils # 0.1 Basophils # 0.0 Sodium 134 L Potassium 3.7 Chloride 104 Carbon Dioxide 21 L Anion Gap 13 BUN 8 Creatinine 0.60 Estimated GFR (MDRD) Greater than 90 Glucose 82 Calcium 8.8 Total Bilirubin 0.2 AST 10 ALT 9 Alkaline Phosphatase 101 Serum Total Protein 6.1 Albumin 3.0 L Globulin 3.1 Albumin/Globulin Ratio 1.0 L - Imaging Imaging: BPP: 09/13, NST reactive FMR OB AP PN: A/P Disposition: discharge to home. F/U tino/ Denis and CHRISTOPHE as scheduled. Discussion: Date/Time: 10/17/18826 Patient reassessed and NST found to be reactive. Gallstones seen on Abdominal U/S. Bpp 09/13 and NST reactive. Patient okay to d/c home. Return precautions discussed. Patient is to follow up w/ CHRISTOPHE on and Dr. Barrios next week as scheduled.
== END 2018-10-16 22:47 | disposition home or self-care (01) ==
LOC: L&D/OP 17:41
PROVIDERS: ATTEND Student in an Organized Health Care Education/Training Program
DX: O36.8130 Decreased fetal movements, third trimester, not applicable or unspecified (principal); O10.913 Unspecified pre-existing hypertension complicating pregnancy, third trimester; O24.313 Unspecified pre-existing diabetes mellitus in pregnancy, third trimester; E11.9 Type 2 diabetes mellitus without complications; Z3A.34 34 weeks gestation of pregnancy; Z79.82 Long term (current) use of aspirin; Z79.4 Long term (current) use of insulin
CPT/HCPCS: 36415; 76705; 76815; 76819; 80053; 85025

== ENCOUNTER 2018-10-29 18:27 | Day surgery (SDC) | payer BC ==
[2018-10-29 19:12] VITALS: BP 131/67; TEMP 98.6; BMI 54.7
[2018-10-29 20:06] LABS: Amnisure Test No Membranes Rupture (No Rupture)
[2018-10-29 20:07] LABS: Amnisure Internal Control QC ACCEPTABLE (ACCEPTABLE)
--- NOTE | 2018-10-29 21:35 | PDOC.FPROB ---
FMR OB H&P: HPI - History of Present Illness Chief Complaint: Suspected ROM Indentification: @ 35.6 wks History of Present Illness: at 35.6 wks dated by 7.1 week Sono w/ hx of gestational DM, chronic HTN who presents for clear fluid saturating panties. She noticed mild clear fluid starting this previous Monday. She also noted mild, intermittent cramping. She called to [facility] today and she was directed to the hospitals. She denies vaginal bleeding, fever, chills, chest pain, SOB, vision changes, SOMERS, changes in urination. Previous required C/S secondary to failure to progress after induction. Induced at 36 wks for DM. FMR OB H&P: Current - Care : 2 Para: 1 Gestational age: 35.6 Due date: 11/27/18 Dating Criteria: 7.1 week sono Course/Complications: cHTN, GDM FMR OB H&P: History - Past Medical History PMH: cHTN, GDM - OB History OB History: C/S in first for failure to progress after induction at 36 wks for DM - Surgical History Sx History: none - Social History Social History: denies drugs, alcohol, tobacco - Family History Family History: non contributory FMR OB H&P: Medications - Current Home Medications: Medication Instructions Recorded Confirmed Type Vitamin 1 tablet PO DAILY 04/11/18 10/29/18 History Sertraline HCl 50 mg PO DAILY 04/11/18 10/29/18 History Aspirin [Adult Aspirin Regimen] 81 mg PO DAILY 08/20/18 10/29/18 History HumaLOG [HumaLOG Vial] 28 units SC TID 08/20/18 10/29/18 History Insulin Detemir [Levemir] 32 units SQ DAILY 10/29/18 10/29/18 History Allergies/Adverse Reactions: Allergies Allergy/AdvReac Type Severity Reaction Status Date / Time No Known Allergies Allergy Verified 10/16/18 18:15 FMR OB H&P: ROS - Review of Systems General: denies: fever/chills, weight/appetite/sleep changes ENT: denies: nasal congestion, rhinorrhea Cardiovascular: denies: chest pain, palpitation Respiratory: denies: cough, congestion Gastrointestinal: denies: abdominal pain, nausea, vomiting, diarrhea, constipation Genitourinary (Female): reports: vaginal discharge. denies: incontinence, dysuria, vaginal bleeding Integumentary: denies: itching, rash FMR OB H&P: Vital Signs - Maternal Vital signs: Vital Signs - First Documented Temp Pulse Resp BP Pulse Ox 98.6 F 82 18 131/67 99 10/29/18 18:42 10/29/18 18:42 10/29/18 18:42 10/29/18 18:42 10/29/18 18:42 - Heart Tones Variability: moderate Acceleration: absent Deceleration: absent FMR OB H&P: Physical Exam - Physical Exam General: NAD, awake, alert and oriented HEENT: PERRLA, EOMI Neck: supple, FROM Heart: RRR, normal S1/S2, no edema General: CTAB, no respiratory distress, no wheezing Abdomen: soft, gravid Musculoskeletal: normal gait and station, pulses present Neurological: cranial nerves II through XII intact, sensation to pain,touch and proprioception grossly normal Skin: good tugor, capillary refill <2 seconds Lymphatic: no purpura, no petechia Psychiatric: good judgement and insight, normal mood and affect - Pelvic Exam Cervix: no lesions Presentation: Cephalic FMR OB H&P: Results - Labs Lab results: Laboratory Results - last 24 hr 10/29/18 19:40 Amnio Swab Test No Membranes Rupture FMR OB H&P: A/P - Problem List (1) Term Status: Acute Code(s): Z34.90 - ENCNTR FOR SUPRVSN OF NORMAL , UNSP, UNSP TRIMESTER Disposition: at 35.6 wks dated by 7.1 week Sono w/ hx of gestational DM, chronic HTN who presents for clear fluid saturating panties. # Vaginal Discharge, Clear Fluid - negative amnisure - negative sterile speculum exam, pooling of fluid, no fluid leaking from OS - white discharge at cervical os - VP3 pending. Call pt with results. - Good fluid pockets on U/S, cephalic presentation - Following up with [facility] tomorrow for U/S. - Recommend to present to L/D if pt experiences cramps/contractions, fluid leakage, or bleeding. - FHT's reassuring Dispo: discharge home with follow up tomorrow. Discussion: Date/Time: 10/29/182133 This H&P was discussed with [] and [] who agree with the above documentation and plan. Addendum - Attending - Attending Attestation Date/Time: 10/30/18925 I personally evaluated the patient and discussed the management with Dr. eRyes and Glen. I agree with the History, Examination, Assessment and Plan documented above with any addition or exceptions noted below. No signs of rupture on exam. Reassuring status. Subjectively normal fluid. Has follow up tomorrow for APT. Return warnings discussed and patient voiced understanding.
== END 2018-10-29 21:10 | disposition home or self-care (01) ==
LOC: L&D/OP 18:27
PROVIDERS: ATTEND Student in an Organized Health Care Education/Training Program
DX: O99.89 Other specified diseases and conditions complicating pregnancy, childbirth and the puerperium (principal); N89.8 Other specified noninflammatory disorders of vagina; O10.913 Unspecified pre-existing hypertension complicating pregnancy, third trimester; O24.414 Gestational diabetes mellitus in pregnancy, insulin controlled; Z3A.35 35 weeks gestation of pregnancy; Z79.82 Long term (current) use of aspirin; Z79.4 Long term (current) use of insulin; Z79.899 Other long term (current) drug therapy
CPT/HCPCS: 84112; 87480; 87510; 87660

== ENCOUNTER 2018-11-02 12:36 | Day surgery (SDC) | payer BC ==
[2018-11-02] MEDS ORDERED: hydrALAZINE 20 MG/ML VIAL SLOW IVP PRN (13:04)
[2018-11-02 13:20] VITALS: BMI 55.3
--- NOTE | 2018-11-02 13:40 | PDOC.LDHP ---
Labor and Delivery H&P Chief complaint: other ( tachycardia) HPI: Sachi Samson is a 27 year old F at 36.3 wks by 7.1 wk sono, ALLEGRA of 11/27. She was sent from [facility] after being seen for routine follow up and it was noted that HR was in the 160s on a couple different occasions. Sachi denies any new complaints today. She denies any vaginal bleeding, discharge, dysuria, fever, chills, dyspnea. FM+. States that over the past couple days she has noted occasional contractions, maybe 1-2 an hour. She has a history of pregestation diabetes, on levemir and humalog. Also history of chronic hypertension that has been under control this without medications. She was seen here about a week ago to r/o rupture. Amnisure was negative and patient had a negative VP3 at that time. Current gestational age (weeks): 36 (36.3) Due date: 11/27/18 Dating criteria: first trimester ultrasound Grav: 2 Para: 1 Current complications: pregestational diabetes, hypertension (chronic) , other Current medications: pre- vitamins, other (Humalog, Levemir) Previous surgical history: low tranverse CS Allergies/Adverse Reactions: Allergies Allergy/AdvReac Type Severity Reaction Status Date / Time No Known Allergies Allergy Verified 11/02/18 13:21 Social history: none - Physical Exam Vital signs reviewed and normal: yes General: NAD, resting Heart: RRR Lungs: CTAB Abdomen: gravid Extremeties: no edema FHT: category 1 (baseline 150, mod variability, occasional accels, no decels) - OB Labs Blood type: O RH: positive Antibody Screen: negative HIV: negative RPR: negative HEPSAg: negative Rubella: immune - Assessment 1) sIUP 2) pregestation diabetes-uncontrolled 3) chronic hypertension 4) Maternal obesity 5) hx of cholelithiasis - Plan -: 1) sIUP: - tachycardia noted at outpatient clinic - NST/BPP - Currently: Baseline 150, mod variability, occasional accel, no decels - Maternal vitals stable and within normal limits, mother is asymptomatic, no evidence of infection - subsequent management per BPP/NST results 2) Pregestational DM2-uncontrolled - on levemir and humalog - bedside blood glucose of 96 today 3) chronic HTN - BP within normal limits here - continue to monitor Addendum - Attending - Attending Attestation Date/Time: 11/02/18 2643 I personally evaluated the patient and discussed the management with Dr. Aguirre. I agree with the History, Examination, Assessment and Plan documented above with any addition or exceptions noted below. Glucose is normal. BPP pending.
--- NOTE | 2018-11-02 14:49 | ULT ---
BIOPHYSICAL PROFILE WITH UMBILICAL ARTERY DOPPLER EVALUATION: INDICATION: tachycardia. COMPARISON: Prior exam dated 10/16/2018. FINDINGS: There is a single live intrauterine gestation in transverse presentation. The head is to the maternal left. JOSETET is measured at 12.2 cm. Cardiac activity is noted at 150 bpm. The placenta is in the right lateral aspect of the uterine cavity. The fetus received 2/2 for tone, 2/2 for breathing, and 2/2 for movement. The amnio tic fluid level was 2/ 2. The low resistance waveform is seen within the umbilical artery at the level of the placenta and mid umbilical artery.. The systolic diastolic ratio at the placenta was 1.82 and at the mid artery was 2.31. There is elevation of velocities seen at the cord insertion to 183.4 cm/second with a sys tolic diastolic ratio 4.35. Resistive index is elevated for gestational age at 0.77. The weight is 7 lbs. 6 oz. +/- 18 ounces or 89th percentile by Hadlock. The gestational age by biometrics was 36 weeks and 1 day. Estimated due date of 11/29/2018. IMPRESSION: 1. Biophysical profile 8 out of 8. 2. Elevation of the resistive index and systolic diastolic ratio of the umbilical artery waveform at the level of the cord insertion. The remaining spectral Doppler evaluation of the umbilical artery was within normal limits. This may be artifactual in nature. Discussion with Dr. Alvarado the HOSE STRIPPER on t he floor revealed no definite concern with the fetus at this moment. Recommend a repeat of the umbilical artery Doppler possibly within 6-12 hours to demonstrate normalization of the waveform at t he cord insertion. 3. JOSETTE of 12.2 cm. Transcribed Date/Time: 11/02/2018 2:56 PM
== END 2018-11-02 14:45 | disposition home or self-care (01) ==
LOC: L&D/OP 12:36
PROVIDERS: ATTEND Student in an Organized Health Care Education/Training Program
DX: O36.8330 Maternal care for abnormalities of the fetal heart rate or rhythm, third trimester, not applicable or unspecified (principal); O24.113 Pre-existing type 2 diabetes mellitus, in pregnancy, third trimester; E11.9 Type 2 diabetes mellitus without complications; O10.913 Unspecified pre-existing hypertension complicating pregnancy, third trimester; O99.213 Obesity complicating pregnancy, third trimester; Z3A.36 36 weeks gestation of pregnancy; Z79.4 Long term (current) use of insulin
CPT/HCPCS: 36416; 76700; 76815; 76819; 99282

== ENCOUNTER 2018-11-07 09:59 | Inpatient (IN) | payer BC ==
--- NOTE | 2018-11-06 12:31 | PDOC.FPROB ---
FMR OB H&P: HPI - History of Present Illness Chief Complaint: scheduled repeat section Indentification: 27 y/o @ 37.1 WGA by 7.1 wk sono (ALLEGRA 11/27/18) History of Present Illness: Presents for scheduled repeat section for chronic HTN and pregestational diabetes on insulin. Pt denies LOF, vaginal bleeding, vaginal d/c , H/A, vision changes, SOB, RUQ pain. Endorses good movement. She does reports occasional ctx that are mild. Primary Care Physician: Dr. Barrios - [facility] FMR OB H&P: Current - Care : 2 Para: 1001 Gestational age: 37w1d Due date: 11/27/18 Dating Criteria: 7w1d sono Course/Complications: Pt with pregestational diabetes on insulin that has been difficult to control. Required hospitalization in the first trimester for better glucose control and have had to continue to titrate up insulin throughout . She is currently on Levemir and Humalog with controlled glucose logs, but A1c of 6.8. Pt has chronic HTN that has been well controlled off medications, but she has required one triage on L&D for pre-e workup. The baby was found on US to have an enlarged bladder, but MFM ultrasound had no abnormalities. - OB Labs Blood type: O RH: positive Antibody Screen: negative HIV: negative RPR: negative HepBsAg: negative Rubella: immune Gonorrhea: negative Chlamydia: negative Pap Smear: NILM A1c: 8.9->7.4->6.6->5.9->6.7->6.8 GBS: negative - Anatomy Survey Anatomy survey: female, normal anatomy FMR OB H&P: History - Past Medical History PMH: asthma, depression, anxiety - OB History OB History: 1 prior term pLTCS - [employer] History [employer] History: no h/o abnormal pap smears or STI's - Surgical History Sx History: 1 prior section - Social History Social History: , denies tobacco, EtOH, or drug use - Family History Family History: Diabetes - mother and grandmother FMR OB H&P: Medications - Current Home Medications: Medication Instructions Recorded Confirmed Type Vitamin 1 tablet PO DAILY 04/11/18 11/02/18 History Sertraline HCl 50 mg PO DAILY 04/11/18 11/07/18 History Aspirin [Adult Aspirin Regimen] 81 mg PO DAILY 08/20/18 11/02/18 History HumaLOG [HumaLOG Vial] 28 units SC TID 08/20/18 11/02/18 History Insulin Detemir [Levemir] 32 units SQ DAILY 10/29/18 11/02/18 History Allergies/Adverse Reactions: Allergies Allergy/AdvReac Type Severity Reaction Status Date / Time No Known Allergies Allergy Verified 11/02/18 13:21 FMR OB H&P: ROS - Review of Systems General: denies: fever/chills, fatigue Eyes: denies: vision changes, scotomas ENT: denies: nasal congestion, rhinorrhea Cardiovascular: denies: chest pain, edema Respiratory: denies: cough, shortness of breath Gastrointestinal: denies: abdominal pain, nausea, vomiting Genitourinary (Female): denies: dysuria, hematuria Musculoskeletal: denies: pain, stiffness Neurologic: denies: numbness, weakness Integumentary: denies: itching, rash Endocrine: denies: cold intolerance, heat intolerance Psychological: denies: depression, anxiety FMR OB H&P: Vital Signs - Maternal Vital signs: BP 137/76, HR 80, Weight 141.9kg - Heart Tones Baseline: 155 Variability: moderate Acceleration: present Deceleration: absent Category: category 1 FMR OB H&P: Physical Exam - Physical Exam General: NAD, awake, alert and oriented HEENT: EOMI, MMM, no scleral icterus, grossly normal vision, grossly normal hearing Neck: supple, no LAD Heart: RRR, normal S1/S2, no murmurs/rubs/gallops, pulses present, no edema General: CTAB, no respiratory distress, good air movement, no rales/rhonchi, no wheezing Abdomen: gravid, non-tender Musculoskeletal: pulses present Neurological: no clonus, no focal deficit Skin: good tugor, capillary refill <2 seconds Psychiatric: intact recent and remote memory, good judgement and insight - Pelvic Exam Estimated Weight: 8 lbs FMR OB H&P: A/P - Problem List (1) Previous delivery affecting Status: Acute Code(s): O34.219 - MATERNAL CARE FOR UNSP TYPE SCAR FROM PREVIOUS DEL Assessment and Plan: Admit to L&D for scheduled -Consult anesthesia -NPO -LR -Ancef 3g will redose if indicated after surgery -Plan for lovenox (2) Term Status: Acute Code(s): Z34.90 - ENCNTR FOR SUPRVSN OF NORMAL , UNSP, UNSP TRIMESTER (3) Diabetes mellitus affecting Status: Chronic Code(s): O24.919 - UNSP DIABETES MELLITUS IN , UNSPECIFIED TRIMESTER Assessment and Plan: Will check single glucose prior to surgery and then check ACHS with CC diet once tolerating diet. -Will need to titrate insulin -Will plan for wound vac (4) Chronic hypertension affecting Status: Chronic Code(s): O10.919 - UNSP PRE-EXISTING HTN COMP , UNSP TRIMESTER Assessment and Plan: -Will check CBC, CMP on admission -Monitor BP's during delivery and for signs of superimposed pre- eclampsia (5) Body mass index (BMI) 50-59.9, adult Status: Chronic Code(s): Z68.43 - BODY MASS INDEX (BMI) 50.0-59.9, ADULT Assessment and Plan: Will dose ppx ancef appropriately -Will plan for lovenox (6) Anxiety disorder affecting , antepartum Status: Chronic Code(s): O99.340 - OTH MENTAL DISORDERS COMPLICATING , UNSP TRIMESTER; F41.9 - ANXIETY DISORDER, UNSPECIFIED Assessment and Plan: Continue sertraline (7) Depression affecting Status: Acute Code(s): O99.340 - OTH MENTAL DISORDERS COMPLICATING , UNSP TRIMESTER; F32.9 - MAJOR DEPRESSIVE DISORDER, SINGLE EPISODE, UNSPECIFIED Assessment and Plan: Continue sertraline Disposition: Admit to L&D for scheduled section Discussion: Date/Time: 11/06/18 1226 This H&P was discussed with Dr. Chou who agrees with the above documentation and plan. Signature: Argelia Barrios MD, PGY-3 Addendum - Attending - Attending Attestation Date/Time: 11/07/18 1226 Seen and examined. I discussed risks of repeat to include pain, bleeding, infection, damage to bowel, bladder, other internal organs, need for transfusion, repeat operation, prolonged hospitalization and she voiced understanding and desires to proceed.
[2018-11-07] MEDS ORDERED: hydrALAZINE 20 MG/ML VIAL SLOW IVP PRN ×2 (10:56→16:33)
[2018-11-07] MEDS ORDERED: Dextrose 5% in Water 1,000 ML IV PRN ×2 (10:56→16:33)
[2018-11-07] MEDS ORDERED: Lactated Ringer's 1,000 ML IV SCH (10:56)
[2018-11-07] MEDS ORDERED: Dextrose 50% Abboject 50 ML SYRINGE SLOW IVP PRN ×2 (10:56→16:33)
[2018-11-07] MEDS ORDERED: Bicitra 30 ML UDCUP PO SCH (10:56)
[2018-11-07] MEDS ORDERED: Ondansetron PF 4 MG/2 ML Vial IVP PRN ×2 (10:56→12:41)
[2018-11-07] MEDS ORDERED: Promethazine HCl 25 MG/ML VIAL IM PRN ×2 (10:56→12:41)
[2018-11-07 11:21] VITALS: BMI 54.6
[2018-11-07 11:28] LABS: Hemoglobin 11.3 g/dL (12.0-16.0); Mean Corpuscular HGB CONC 32.5 g/dL (32.0-36.0); Mean Corpuscular Volume 77.1 fL (78.0-98.0); Mean Platelet Volume 8.2 fL (7.4-10.4); Platelet Count 389 thou/uL (130-400); RBC Distribution Width 13.4 % (11.5-14.5)
[2018-11-07] MEDS ORDERED: CEFAZOLIN 3 GM in Sodium Chloride 0.9% 100 ML IVPB SCH (11:30)
[2018-11-07] MEDS ORDERED: ePHEDrine 50 MG/ML VIAL ONE (11:54)
[2018-11-07] MEDS ORDERED: Metoclopramide HCl 10 MG/2 ML VIAL ONE ×2 (11:54→12:59)
[2018-11-07] MEDS ORDERED: Ondansetron PF 4 MG/2 ML Vial ONE ×2 (11:54→12:10)
[2018-11-07] MEDS ORDERED: MORPHINE 5 MG/10 ML PF VIAL ONE (12:09)
[2018-11-07 12:10] LABS: ALT (SGPT) 10 U/L (8-55); AST (SGOT) 13 U/L (5-34); Alkaline Phosphatase 139 U/L (40-110); Anion Gap 16 mmol/L (10-20); BUN (Urea Nitrogen) 12 mg/dL (7.0-18.7); Bilirubin, Total 0.2 mg/dL (0.2-1.2); Calc. Creatinine Clearance 279 mL/min (70-130); Calcium 8.7 mg/dL (7.8-10.44); Carbon Dioxide 16 mmol/L (22-29); Chloride 106 mmol/L (98-107); Estimated GFR-MDRD Greater than 90; Globulin 3.2 g/dL (2.4-3.5); Glucose 89 mg/dL (70-105); Potassium 4.5 mmol/L (3.5-5.1); Protein, Total 6.2 g/dL (6.0-8.3); Sodium 133 mmol/L (136-145)
[2018-11-07] MEDS ORDERED: Oxytocin 10 UNITS/ML VIAL ONE (12:10)
[2018-11-07] MEDS ORDERED: ePHEDrine/0.9% NaCl/PF SYRINGE 50 mg/10 ml ONE (12:10)
[2018-11-07 12:20] LABS: HBSAg Index 0.18 S/CO (0-0.99); Hep B Surf Ag Non-Reactive S/CO (NonReactive); Syphilis Antibody Nonreactive (Nonreactive); Syphilis Antibody Index 0.07 S/CO (<1.00 Non-Reactive)
[2018-11-07] MEDS ORDERED: Naloxone HCl 0.4 mg/ml Vial IV PRN (12:41)
[2018-11-07] MEDS ORDERED: Promethazine HCl 25 MG SUPP PR PRN (12:41)
[2018-11-07] MEDS ORDERED: HYDROmorphone 2 MG/ML VIAL SLOW IVP PRN (12:41)
[2018-11-07] MEDS ORDERED: Naloxone HCl 0.4 mg/ml Vial IVP PRN ×2 (12:41)
[2018-11-07] MEDS ORDERED: Meperidine HCl/PF 25 MG/ML VIAL SLOW IVP PRN (12:41)
[2018-11-07] MEDS ORDERED: L&D-Morphine 4 MG/ML VIAL SLOW IVP PRN (12:41)
[2018-11-07] MEDS ORDERED: diphenhydrAMINE 50 MG/ML VIAL IVP PRN (12:41)
[2018-11-07] MEDS ORDERED: Ondansetron HCl/PF 4 MG/2 ML Vial IVP PRN (12:41)
[2018-11-07] MEDS ORDERED: Communication Order-Pharmacy FS SCH (12:45)
[2018-11-07] MEDS ORDERED: Ketorolac Tromethamine 30 MG/ML VIAL IVP SCH (12:45)
--- NOTE | 2018-11-07 14:03 | PDOC.OPDEL ---
OB Operative/Delivery Note Delivery Dr/Surgeon: Dr. Barrios with Dr. Chou and Dr. Blankenship attending Pre-Delivery Diagnosis: scheduled section Weeks gestation: 37 (37w1d) Anesthesia: spinal - Findings A Sex: female - Additional Findings/Plan Placenta delivered: spontaneous findings: low transverse hysterotomy without extension Estimated blood loss: 500mL Compilations/Other Findings: Preoperative Diagnosis: 1)Term intrauterine 2)Previous 3)Pregestational Diabetes 4)Chronic HTN Postoperative Diagnosis: 1)Term intrauterine 2)Previous 3)Pregestational Diabetes 4)Chronic HTN 5)Thick Meconium Anesthesia: spinal Indications: The patient is a 27 year old female at 37.1 weeks gestation who presents for a repeat scheduled . Procedure in Detail: After risks, benefits, and alternatives were explained to the patient, she gave informed consent. Pre-operative antibiotics included Cefazolin 3 gram IV. The patient was taken to the operating room and spinal anesthesia was initiated. She was placed in the supine position with a left tilt and prepped and draped in usual sterile fashion. A Pfannenstiel incision was made with a scalpel and carried down to the level of the fascia which was sharply nicked. The fascial cut was extended bilaterally with Holder scissors. The superior edge of the cut fascial edges were elevated with Shelbi clamps and the underlying rectus muscles were sharply and bluntly dissected free. The recti were divided digitally and retracted manually. The peritoneum was entered bluntly and retracted manually. Ranulfo O retractor was placed. Bladder flap was created with Metzenbaum scissors. A low transverse score was made with the scalpel and the uterus was entered in the midline bluntly. Thick meconium fluid was seen. The hysterotomy was extended manually in a cephalocaudal fashion. The infant was noted to be vertex and was easily delivered by fundal pressure. Mouth and nares were bulb suctioned. Cord clamped and cut and grossly normal female infant was handed to waiting nurse. Cord gas and cord blood were obtained. Placenta delivered spontaneously and was found to be intact with 3 vessel cord and lightly stained with meconium and discarded. The endometrium was curetted with a dry lap. The uterus was closed with a running locking #1 Monocryl Following this hemostasis was noted. The abdomen was irrigated with saline and suctioned free of clots. The Ranulfo O retractor was removed and the hysterotomy was again noted to be hemostatic. The fascia was closed with a running non-locking 0-PDS suture. The subcutaneous tissue was irrigated and there were a few bleeders that were cauterized with the bovie. The skin was closed with 4-0 monocryl sutures and a wound vac was placed. All counts were correct. The patient tolerated the procedure well and was taken to the recovery room in stable condition. Time of delivery: 1257 on 11/07/18 Estimated Blood Loss: 500 ml, QBL pending Complications: None Specimens: Cord blood and cord gas sent to lab Findings: Grossly normal female had difficulty breathing initially and was requiring CPAP, will be admitted to NICU by neonatologists. Meconium stained placenta with 3 vessel cord discarded. Drains: Barroso to gravity draining clear urine Post delivery plan: routine recovery Addendum - Attending - Attending Attestation Date/Time: 11/07/18 1641 I was present and scrubbed for the entire case.
[2018-11-07] MEDS ORDERED: Promethazine HCl 25 MG/ML VIAL ONE (14:24)
[2018-11-07] MEDS ORDERED: NS / Oxytocin 40 units/1000ml 1,000 ML ONE (14:58)
[2018-11-07] MEDS ORDERED: Adacel (T-DAP) 0.5 ML SYRINGE IM ONE (16:33)
[2018-11-07] MEDS ORDERED: Lanolin Ointment 7 GM TUBE TOP PRN (16:33)
[2018-11-07] MEDS ORDERED: HumaLOG 300 UNITS/3 ML VIAL SC PRN ×2 (16:33)
--- NOTE | 2018-11-07 18:07 | PDOC.BPN ---
- Brief Progress Note 27 y/o ->1 delivered via rLTCS today Seen 4 hours post-op. Pt resting comfortably in bed with normal vital signs. Reports pain well controlled at this time, but is having N/V. She was tearful discussing her child in the NICU, but felt better after talking more about it. Vital signs are stable -ADAT, antiemetics prn -Lantus tonight if tolerating PO, otherwise will hold until the morning -Starting lovenox 8 hours post-op -Toradol for pain, will switch to PO pain meds tomorrow
[2018-11-07] MEDS: Docusate Calcium (SURFAK) 240 MG CAP PO SCH (22:45)
[2018-11-07] MEDS: Insulin Glargine 12 UNITS in Pre-Filled Syringe SC SCH (22:46)
[2018-11-07] MEDS: Ferrous Sulfate 325 MG TAB PO SCH (22:46)
[2018-11-07] MEDS: Enoxaparin Sodium 40 MG/0.4 ML SYRINGE SC SCH (23:41)
[2018-11-07] MEDS: Ketorolac Tromethamine 30 MG/ML VIAL IVP PRN (23:41)
[2018-11-08] MEDS: Ketorolac Tromethamine 30 MG/ML VIAL IVP PRN (05:52)
[2018-11-08 07:12] LABS: Mean Corpuscular HGB CONC 32.9 g/dL (32.0-36.0); Mean Corpuscular Hemoglobin 25.1 pg (27.0-31.0); Mean Corpuscular Volume 76.2 fL (78.0-98.0); Mean Platelet Volume 7.6 fL (7.4-10.4); Platelet Count 326 thou/uL (130-400); RBC Distribution Width 13.1 % (11.5-14.5); White Blood Cell (WBC) Count 9.4 thou/uL (4.8-10.8)
[2018-11-08] MEDS: Docusate Calcium (SURFAK) 240 MG CAP PO SCH ×2 (08:01→21:59)
[2018-11-08] MEDS: Insulin Glargine 16 UNITS in Pre-Filled Syringe SC SCH (08:01)
[2018-11-08] MEDS: Ferrous Sulfate 325 MG TAB PO SCH ×2 (08:01→21:58)
[2018-11-08] MEDS: Prenatal Vitamin 1 TAB PO SCH (08:01)
--- NOTE | 2018-11-08 08:06 | PDOC.OBPPN ---
FMR OB PN: Subj - Interval History Day: 1 27 y/o @ 37.1 WGA delivered via rLTCS on 11/08. Patient reports the nausea/vomiting have improved since last night. She has tolerated ice chips and water this AM. She reports her pain has been very well controlled with toradol. She still has the brown in, but she was able to get up into a wheelchair last night to go see her daughter in the NICU. She reports moderate lochia. She has been pumping and plans to breast feed. Denies H/A, fever, vision changes, SOB. FMR OB PN: Obj - Maternal Vital signs: BP: 122/58 HR: 74 RR: 16 Tmax: 98.1 Pox: 96% on RA Wt: 141.9kg - Urine output I&O: 11/07/18 11/08/18 11/09/18 06:59 06:59 06:59 Intake Total 1820 Output Total 1538 Balance 282 FMR OB PN: Exam - Physical Exam General: NAD, awake, alert and oriented HEENT: normocephalic and atraumatic, EOMI, MMM, no scleral icterus, grossly normal hearing Neck: supple, no LAD Heart: RRR, normal S1/S2, no murmurs/rubs/gallops, pulses present, no edema General: CTAB, no respiratory distress, good air movement, no wheezing Abdomen: soft, fundus(cm) (firm 1cm below umbilicus) Musculoskeletal: normal gait and station, pulses present Skin: good tugor, capillary refill <2 seconds : bandage intact (wound vac in place with no leaks) Lymphatic: no unusual bruising or bleeding, no purpura Psychiatric: intact recent and remote memory, normal mood and affect FMR OB PN: Data - Labs Lab results: Laboratory Results - last 24 hr 11/07/18 11/07/18 11/07/18 11:14 11:14 11:14 WBC RBC Hgb Hct MCV MCH MCHC RDW Plt Count MPV Cord ABG pH Cord ABG PCO2 (Joann) Sodium 133 L Potassium 4.5 Chloride 106 Carbon Dioxide 16 L Anion Gap 16 BUN 12 Creatinine 0.68 Estimated GFR (MDRD) Greater than 90 Glucose 89 POC Glucose Calcium 8.7 Total Bilirubin 0.2 AST 13 ALT 10 Alkaline Phosphatase 139 H Serum Total Protein 6.2 Albumin 3.0 L Globulin 3.2 Albumin/Globulin Ratio 0.9 L Syphilis IgG/IgM Ab Nonreactive Hep Bs Antigen Non-Reactive Blood Type Antibody Screen 11/07/18 11/07/18 11/07/18 11:14 11:14 12:08 WBC 10.0 RBC 4.50 Hgb 11.3 L Hct 34.7 L MCV 77.1 L MCH 25.0 L MCHC 32.5 RDW 13.4 Plt Count 389 MPV 8.2 Cord ABG pH Cord ABG PCO2 (Joann) Sodium Potassium Chloride Carbon Dioxide Anion Gap BUN Creatinine Estimated GFR (MDRD) Glucose POC Glucose Calcium Total Bilirubin AST ALT Alkaline Phosphatase Serum Total Protein Albumin Globulin Albumin/Globulin Ratio Syphilis IgG/IgM Ab Hep Bs Antigen Blood Type O POSITIVE O POSITIVE Antibody Screen NEGATIVE 11/07/18 11/07/18 11/07/18 13:07 14:50 17:06 WBC RBC Hgb Hct MCV MCH MCHC RDW Plt Count MPV Cord ABG pH 7.156 L* Cord ABG PCO2 (Joann) 67.8 H* Sodium Potassium Chloride Carbon Dioxide Anion Gap BUN Creatinine Estimated GFR (MDRD) Glucose POC Glucose 99 95 Calcium Total Bilirubin AST ALT Alkaline Phosphatase Serum Total Protein Albumin Globulin Albumin/Globulin Ratio Syphilis IgG/IgM Ab Hep Bs Antigen Blood Type Antibody Screen 11/07/18 11/08/18 11/08/18 21:40 05:18 07:02 WBC 9.4 RBC 3.60 L Hgb 9.0 L Hct 27.4 L MCV 76.2 L MCH 25.1 L MCHC 32.9 RDW 13.1 Plt Count 326 MPV 7.6 Cord ABG pH Cord ABG PCO2 (Joann) Sodium Potassium Chloride Carbon Dioxide Anion Gap BUN Creatinine Estimated GFR (MDRD) Glucose POC Glucose 130 H 95 Calcium Total Bilirubin AST ALT Alkaline Phosphatase Serum Total Protein Albumin Globulin Albumin/Globulin Ratio Syphilis IgG/IgM Ab Hep Bs Antigen Blood Type Antibody Screen FMR OB PN: A/P - Problem List (1) Previous delivery affecting Status: Acute Code(s): O34.219 - MATERNAL CARE FOR UNSP TYPE SCAR FROM PREVIOUS DEL Comment: POD#1 s/p rLTCS -Toradol for pain, will transition to ibuprofen and norco once pt tolerating PO -Encourage ambulation -ADAT -Lovenox for VTE ppx (2) Term Status: Acute Code(s): Z34.90 - ENCNTR FOR SUPRVSN OF NORMAL , UNSP, UNSP TRIMESTER Comment: Continue routine care -Iron -PNV (3) Diabetes mellitus affecting Status: Chronic Code(s): O24.919 - UNSP DIABETES MELLITUS IN , UNSPECIFIED TRIMESTER Comment: Decreased home levemir dose to half -Will initiate this morning as pt did not tolerate any PO yesterday -ACHS glucose checks -CC diet once tolerating PO (4) Chronic hypertension affecting Status: Chronic Code(s): O10.919 - UNSP PRE-EXISTING HTN COMP , UNSP TRIMESTER Comment: BP's have been well controlled -Will monitor closely for signs/symptoms of superimposed pre-eclampsia (5) Body mass index (BMI) 50-59.9, adult Status: Chronic Code(s): Z68.43 - BODY MASS INDEX (BMI) 50.0-59.9, ADULT Comment: Encourage early ambulation -On lovenox and SCD's for VTE ppx (6) Anxiety disorder affecting , antepartum Status: Chronic Code(s): O99.340 - OTH MENTAL DISORDERS COMPLICATING , UNSP TRIMESTER; F41.9 - ANXIETY DISORDER, UNSPECIFIED Comment: Continue sertraline (7) Depression affecting Status: Acute Code(s): O99.340 - OTH MENTAL DISORDERS COMPLICATING , UNSP TRIMESTER; F32.9 - MAJOR DEPRESSIVE DISORDER, SINGLE EPISODE, UNSPECIFIED Comment: Continue sertraline Disposition: Continue to monitor on Discussion: Date/Time: 11/08/18 0803 This H&P was discussed with Dr. Chou who agrees with the above documentation and plan. Signature: Argelia Barrios MD, PGY-3 Addendum - Attending - Attending Attestation Date/Time: 11/08/18 1105 I personally evaluated the patient and discussed the management with Dr. Barrios and team. I agree with the History, Examination, Assessment and Plan documented above with any addition or exceptions noted below.
[2018-11-08] MEDS: HYDROcodone/Acetaminophen 5/325 mg Tablet PO PRN ×3 (09:30→15:59)
[2018-11-08] MEDS: Simethicone Chewable 80 MG TAB PO PRN (09:32)
[2018-11-08] MEDS ORDERED: FLU VACC QS2019-20(6MOS UP)/PF 60 MCG/0.5 ML SYRINGE IM ONE (11:30)
[2018-11-08] MEDS: Ibuprofen 800 MG TAB PO SCH ×2 (13:12→21:59)
[2018-11-08] MEDS: Enoxaparin Sodium 40 MG/0.4 ML SYRINGE SC SCH (22:00)
[2018-11-08] MEDS: Insulin Glargine 12 UNITS in Pre-Filled Syringe SC SCH (22:01)
[2018-11-09] MEDS: Ibuprofen 800 MG TAB PO SCH ×3 (06:05→22:09)
[2018-11-09] MEDS: HYDROcodone/Acetaminophen 5/325 mg Tablet PO PRN ×2 (07:26→20:43)
--- NOTE | 2018-11-09 07:27 | PDOC.OBPPN ---
FMR OB PN: Subj - Interval History Day: [age] y/o @ 37.1 WGA delivered via rLTCS on 11/08. She reports abdominal pain, but has been trying not to take norco. She reports minimal lochia. She has been pumping and plans to breast feed. She has been ambulating to the NICU and tolerating PO. Denies H/A, fever, vision changes, SOB. FMR OB PN: Obj - Maternal Vital signs: BP: 131/75 HR: 78 RR: 18 Tmax: 98.7 Pox: 95% on RA Wt: 142kg - Urine output I&O: 11/08/18 11/09/18 11/10/18 06:59 06:59 06:59 Intake Total 1820 2050 Output Total 1538 1850 Balance 282 200 FMR OB PN: Exam - Physical Exam General: NAD, awake, alert and oriented HEENT: EOMI, MMM, grossly normal vision, grossly normal hearing Neck: supple, no LAD Heart: RRR, normal S1/S2, no murmurs/rubs/gallops, pulses present, no edema General: CTAB, no respiratory distress, good air movement, no rales/rhonchi, no wheezing Abdomen: soft, fundus(cm) (firm) Musculoskeletal: pulses present Neurological: no clonus, no focal deficit Skin: good tugor, capillary refill <2 seconds : bandage intact (wound vac in place with no leaks), appropriately tender Psychiatric: intact recent and remote memory, good judgement and insight FMR OB PN: Data - Labs Lab results: Laboratory Results - last 24 hr 11/08/18 11/08/18 11/08/18 11:02 16:15 20:37 POC Glucose 144 H 81 106 11/09/18 06:07 POC Glucose 101 FMR OB PN: A/P - Problem List (1) Previous delivery affecting Status: Acute Code(s): O34.219 - MATERNAL CARE FOR UNSP TYPE SCAR FROM PREVIOUS DEL Comment: POD#2 s/p rLTCS -ibuprofen and norco for pain -Encourage ambulation -ADAT -Lovenox for VTE ppx -Wound vac in place (2) Term Status: Acute Code(s): Z34.90 - ENCNTR FOR SUPRVSN OF NORMAL , UNSP, UNSP TRIMESTER Comment: Continue routine care -Iron -PNV (3) Diabetes mellitus affecting Status: Chronic Code(s): O24.919 - UNSP DIABETES MELLITUS IN , UNSPECIFIED TRIMESTER Comment: Decreased home levemir dose to half -ACHS glucose checks -CC diet (4) Chronic hypertension affecting Status: Chronic Code(s): O10.919 - UNSP PRE-EXISTING HTN COMP , UNSP TRIMESTER Comment: BP's have been well controlled -Will monitor closely for signs/symptoms of superimposed pre-eclampsia (5) Body mass index (BMI) 50-59.9, adult Status: Chronic Code(s): Z68.43 - BODY MASS INDEX (BMI) 50.0-59.9, ADULT Comment: Encourage early ambulation -On lovenox and SCD's for VTE ppx (6) Anxiety disorder affecting , antepartum Status: Chronic Code(s): O99.340 - OTH MENTAL DISORDERS COMPLICATING , UNSP TRIMESTER; F41.9 - ANXIETY DISORDER, UNSPECIFIED Comment: Continue sertraline (7) Depression affecting Status: Acute Code(s): O99.340 - OTH MENTAL DISORDERS COMPLICATING , UNSP TRIMESTER; F32.9 - MAJOR DEPRESSIVE DISORDER, SINGLE EPISODE, UNSPECIFIED Comment: Continue sertraline Disposition: Continue to monitor on , anticipate d/c tomorrow Discussion: Date/Time: 11/09/18 5650 This H&P was discussed with Dr. Chou who agrees with the above documentation and plan. Signature: Argelia Barrios MD, PGY-3 Addendum - Attending - Attending Attestation Date/Time: 11/09/18 7088 I personally evaluated the patient and discussed the management with Dr. Barrios. I agree with the History, Examination, Assessment and Plan documented above with any addition or exceptions noted below.
[2018-11-09] MEDS: Ferrous Sulfate 325 MG TAB PO SCH ×2 (09:21→22:09)
[2018-11-09] MEDS: Prenatal Vitamin 1 TAB PO SCH (09:21)
[2018-11-09] MEDS: Insulin Glargine 16 UNITS in Pre-Filled Syringe SC SCH (09:22)
[2018-11-09] MEDS: Docusate Calcium (SURFAK) 240 MG CAP PO SCH ×2 (09:25→21:52)
[2018-11-09] MEDS: Simethicone Chewable 80 MG TAB PO PRN (13:58)
[2018-11-09] MEDS: Enoxaparin Sodium 40 MG/0.4 ML SYRINGE SC SCH (22:09)
[2018-11-09] MEDS: Insulin Glargine 12 UNITS in Pre-Filled Syringe SC SCH (22:15)
[2018-11-10] MEDS: Ibuprofen 800 MG TAB PO SCH ×3 (06:11→21:50)
--- NOTE | 2018-11-10 06:48 | PDOC.OBPPN ---
FMR OB PN: Subj - Interval History Hospital Day: 3 Day: 3 Doing well this morning. No acute events overnight, slept well. Ambulating without difficulty, tolerating PO well w/o n/v, no fever/chills, No cp/sob, urinating without difficulty. Pain well controlled with motrin and norco prn. + BM and flatus. Complains of gas pain that is improved with simethicon. Wound vac in place. via pump, going well. Baby in NICU for at least a few more days but doing well and improving. Chief Complaint: s/p rLTCS FMR OB PN: Obj - Maternal Vital signs: BP: 121/75 HR: 74 RR: 18 Tmax: 98.4 Pox: 99% on RA - Urine output I&O: 11/08/18 11/09/18 11/10/18 06:59 06:59 06:59 Intake Total 1820 2050 1000 Output Total 1538 1850 Balance 255 757 [id number] - Lochia Lochia: less than period with clots - Pain Management Intervention: oral medication (well-controlled) FMR OB PN: Exam - Physical Exam General: NAD, awake, alert and oriented HEENT: EOMI, MMM Neck: supple Heart: RRR, normal S1/S2, no murmurs/rubs/gallops, no edema General: CTAB, no respiratory distress, good air movement, no rales/rhonchi, no wheezing Abdomen: soft, gravid, fundus(cm) (located below umbilicus), bowel sound present , other (appropriately TTP) Musculoskeletal: normal gait and station Neurological: no focal deficit : bandage intact (woudn vac in place), appropriately tender Psychiatric: intact recent and remote memory, good judgement and insight, normal mood and affect FMR OB PN: Data - Labs Lab results: Laboratory Results - last 24 hr 11/09/18 11/09/18 11/09/18 11:47 16:28 22:18 POC Glucose 98 148 H 113 H 11/10/18 06:16 POC Glucose 70 FMR OB PN: A/P - Problem List (1) S/P repeat low transverse Current Visit: Yes Status: Acute Code(s): Z98.891 - HISTORY OF UTERINE SCAR FROM PREVIOUS SURGERY (2) Depression affecting Current Visit: Yes Status: Chronic Code(s): O99.340 - OTH MENTAL DISORDERS COMPLICATING , UNSP TRIMESTER; F32.9 - MAJOR DEPRESSIVE DISORDER, SINGLE EPISODE, UNSPECIFIED Comment: Continue sertraline (3) Term Current Visit: Yes Status: Resolved Code(s): Z34.90 - ENCNTR FOR SUPRVSN OF NORMAL , UNSP, UNSP TRIMESTER Comment: Continue routine care -Iron -PNV (4) Anxiety disorder affecting , antepartum Current Visit: Yes Status: Chronic Code(s): O99.340 - OT MENTAL DISORDERS COMPLICATING , UNSP TRIMESTER; F41.9 - ANXIETY DISORDER, UNSPECIFIED Comment: Continue sertraline (5) Body mass index (BMI) 50-59.9, adult Current Visit: Yes Status: Chronic Code(s): Z68.43 - BODY MASS INDEX (BMI) 50.0-59.9, ADULT Comment: Encourage early ambulation -On lovenox and SCD's for VTE ppx (6) Chronic hypertension affecting Current Visit: No Status: Chronic Code(s): O10.919 - UNSP PRE-EXISTING HTN COMP , UNSP TRIMESTER Comment: BP's have been well controlled -Will monitor closely for signs/symptoms of superimposed pre-eclampsia (7) Diabetes mellitus affecting Current Visit: Yes Status: Chronic Code(s): O24.919 - UNSP DIABETES MELLITUS IN , UNSPECIFIED TRIMESTER Comment: Decreased home levemir dose to half -ACHS glucose checks -CC diet Disposition: 27yo @ 37.1 by 7.1wk soncelestino with h/o pregestational DM, cHTN, and morbid obesity now s/p rLTCS on 11/07/18 on 1257 #rLTCS, POD#3 - , EBL 500cc, no complications during surgery - Doing well, ambulating, BM, urinating, tolerating PO - VSS, afebrile, cont to monitor - Encourage ambulation - Lovenox for VTE ppx - Wound vac in place - Plan to discharge to bed and breakfast today while baby in NICU to f/u with Dr. Barrios in 1 week for wound check and wound vac removal #Pregestational DM - ACHS glucose checks, BG 70->148 - Lantus 16u Qam and 12u QHS - CC diet - Will d/c on this home regimen #Anemia - HB 11.3 -> 9.0 - continue iron supplementation QOD upon discharge #cHTN - monitor closely, BP stable with max of 134/69 since delivery #BMI 50-59.9 - on Lovenox and SCDs for VTE ppx, encourage ambulation #Depression/Anxiety - continue zoloft and monitor IVF: SL Diet: Regular VTE: lovenox Code: Full Dispo: PPD#3 s/p rLTCS. Doing very well, Hb stable, pain well-controlled. Discharge to bed and breakfast today while baby in NICU, f/u with Dr. Barrios in 1 week. Pt voiced agreement and understanding of the above plan and eager for discharge.
[2018-11-10] MEDS: Ferrous Sulfate 325 MG TAB PO SCH ×2 (08:50→21:50)
[2018-11-10] MEDS: Prenatal Vitamin 1 TAB PO SCH (08:51)
[2018-11-10] MEDS: Insulin Glargine 16 UNITS in Pre-Filled Syringe SC SCH (08:54)
[2018-11-10] MEDS: Docusate Calcium (SURFAK) 240 MG CAP PO SCH ×2 (08:58→21:50)
[2018-11-10 18:26] VITALS: TEMP 98.3
[2018-11-10] MEDS: HYDROcodone/Acetaminophen 5/325 mg Tablet PO PRN (19:52)
[2018-11-10] MEDS: Enoxaparin Sodium 40 MG/0.4 ML SYRINGE SC SCH (21:50)
[2018-11-10] MEDS: Insulin Glargine 12 UNITS in Pre-Filled Syringe SC SCH (21:51)
[2018-11-11] MEDS: Ibuprofen 800 MG TAB PO SCH ×2 (06:06→13:32)
--- NOTE | 2018-11-11 06:21 | PDOC.PP ---
Post Progress Note Post Day #: 4 Subjective: Doing very well this morning, no acute events overnight. Visited baby in NICU and working on breast feeding. Ambulating well, tolerating PO intake without n/v , denies any fever/chills CP or SOB, pain well-controlled with motrin and prn norco, voiding without difficulty, had 1 loose BM yesterday. Passed 2 half- dollar sized clots yesterday and since has had decreased lochia. Baby is doing well in NICU but will have a few more days inpatient per mom's report. PO intake tolerated: yes Flatus: yes Ambulation: yes Vital Signs (12 hours) Temp Pulse Resp BP Pulse Ox 11/10/18 19:52 98.3 F 80 20 138/67 99 Weight Weight 141.974 kg - Physical Examination General: NAD Cardiovascular: no m/r/g, RRR Respiratory: clear to auscultation bilaterally, non-labored breathing Abdominal: + bowel sounds, lochia (decreased), no distention, appropriately TTP Fundus firm & at: below umbilicus Extremities: negative homans (B) (no edema) Skin: CS incision dry & intact (wound vac in place, no surrounding rash, erythema, or drainage) Neurological: no gross focal deficits Psychiatric: A&Ox3, normal affect Result Diagrams: 11/08/18 07:02 11/07/18 11:14 Additional Labs: Post Labs Blood Type O POSITIVE 11/07/18 12:08 Hep Bs Antigen Non-Reactive S/CO (NonReactive) 11/07/18 11:14 (1) S/P repeat low transverse Code(s): Z98.891 - HISTORY OF UTERINE SCAR FROM PREVIOUS SURGERY Status: Acute (2) Depression affecting Code(s): O99.340 - OTH MENTAL DISORDERS COMPLICATING , UNSP TRIMESTER; F32.9 - MAJOR DEPRESSIVE DISORDER, SINGLE EPISODE, UNSPECIFIED Status: Chronic (3) Term Code(s): Z34.90 - ENCNTR FOR SUPRVSN OF NORMAL , UNSP, UNSP TRIMESTER Status: Resolved (4) Anxiety disorder affecting , antepartum Code(s): O99.340 - OTH MENTAL DISORDERS COMPLICATING , UNSP TRIMESTER; F41.9 - ANXIETY DISORDER, UNSPECIFIED Status: Chronic (5) Body mass index (BMI) 50-59.9, adult Code(s): Z68.43 - BODY MASS INDEX (BMI) 50.0-59.9, ADULT Status: Chronic (6) Chronic hypertension affecting Code(s): O10.919 - UNSP PRE-EXISTING HTN COMP , UNSP TRIMESTER Status : Chronic (7) Diabetes mellitus affecting Code(s): O24.919 - UNSP DIABETES MELLITUS IN , UNSPECIFIED TRIMESTER Status: Chronic - Assessment/Plan 27yo @ 37.1 by 7.1wk sono with h/o pregestational DM, cHTN, and morbid obesity now s/p rLTCS on 11/07/18 on 1257 #rLTCS, POD#4 - , EBL 500cc, no complications during surgery - Doing well, ambulating, BM, urinating, tolerating PO - VSS, afebrile, cont to monitor - Encourage ambulation - Lovenox for VTE ppx, will d/c upon discharge - Wound vac in place - Stayed one more night as inpatient last night. Plan to discharge to bed and breakfast today while baby in NICU to f/u with Dr. Barrios in on Monday for wound check and wound vac removal #Pregestational DM - ACHS glucose checks, BG 70-132 - Lantus 16u Qam and 12u QHS - CC diet - Will d/c on this home regimen for OP f/u #Anemia - HB 11.3 -> 9.0 - continue iron supplementation QOD upon discharge #cHTN - monitor closely, BP stable with highest of 141/72 and 142/74 yesterday. Pt states this is near her baseline BP or systolic 135 prior to . - No medications for BP in past per pt, will continue to monitor, will need OP f /u - No s/s of superimposed PreE, no SOB, RUQ pain, SOMERS's, vision changes #BMI 50-59.9 - on Lovenox and SCDs for VTE ppx, encourage ambulation #Depression/Anxiety - continue zoloft and monitor IVF: SL Diet: Regular VTE: lovenox Code: Full Dispo: PPD#4 s/p rLTCS. Doing very well, Hb stable, pain well-controlled. Discharge to bed and breakfast today while baby in NICU, f/u with Dr. Barrios in Monday. Pt voiced agreement and understanding of the above plan.
[2018-11-11 08:09] VITALS: BP 139/72
[2018-11-11] MEDS: Prenatal Vitamin 1 TAB PO SCH (08:13)
[2018-11-11] MEDS: Ferrous Sulfate 325 MG TAB PO SCH (08:13)
[2018-11-11] MEDS: Insulin Glargine 16 UNITS in Pre-Filled Syringe SC SCH (08:21)
[2018-11-11] MEDS: Docusate Calcium (SURFAK) 240 MG CAP PO SCH (10:54)
[2018-11-11] MEDS ORDERED: FLU VACC QS2019-20(6MOS UP)/PF 60 MCG/0.5 ML SYRINGE IM ONE (14:00)
== END 2018-11-11 17:04 | disposition home or self-care (01) | DRG 787 ==
LOC: L&D 09:59 → 3SW 16:25
PROVIDERS: ADMIT Emergency Medicine; ATTEND Emergency Medicine
PROC: 10D00Z1 Extraction of Products of Conception, Low, Open Approach (ICD-10-PCS; principal; 2018-11-07)
PROC: 3E02340 Introduction of Influenza Vaccine into Muscle, Percutaneous Approach (ICD-10-PCS; 2018-11-07)
DX: O34.211 Maternal care for low transverse scar from previous cesarean delivery (principal); O10.02 Pre-existing essential hypertension complicating childbirth; O99.344 Other mental disorders complicating childbirth; O77.0 Labor and delivery complicated by meconium in amniotic fluid; O24.424 Gestational diabetes mellitus in childbirth, insulin controlled; F41.9 Anxiety disorder, unspecified; F32.9 Major depressive disorder, single episode, unspecified; O99.02 Anemia complicating childbirth; D64.9 Anemia, unspecified; Z3A.37 37 weeks gestation of pregnancy; Z37.0 Single live birth; Z79.899 Other long term (current) drug therapy; Z79.82 Long term (current) use of aspirin; Z23 Encounter for immunization; O99.214 Obesity complicating childbirth; E66.01 Morbid (severe) obesity due to excess calories
CPT/HCPCS: 36415; 36416; 51702; 80053; 82805; 85027; 86780; 86850; 86900; 86901; 87340; 90471; 90686; G0008; J0690; J1650; J1815; J1885; J2274; J2405; J2550; J2590; J2765; J3490

== ENCOUNTER 2018-11-22 22:43 | Day surgery (SDC) | payer BC ==
[2018-11-22 23:44] LABS: #Basophils 0.1 thou/uL (0.0-0.2); #Eosinphils 0.3 thou/uL (0.0-0.7); #Lymphocytes 2.8 thou/uL (1.20-3.40); #Monocytes 0.4 thou/uL (0.11-0.59); #Neutrophils 3.7 thou/uL (1.40-6.50); %Basophils 1.3 % (0.0-1.0); %Eosinophils 3.9 % (0.0-10.0); %Lymphocytes 38.3 % (21.0-51.0); %Monocytes 5.6 % (0.0-10.0); %Neutrophils 50.8 % (42.0-75.0); Hemoglobin 9.8 g/dL (12.0-16.0); Mean Corpuscular Hemoglobin 25.3 pg (27.0-31.0); Mean Platelet Volume 7.3 fL (7.4-10.4); Platelet Count 467 thou/uL (130-400); RBC Distribution Width 13.5 % (11.5-14.5); Red Blood Cell (RBC) Count 3.88 mill/uL (4.20-5.40); White Blood Cell (WBC) Count 7.4 thou/uL (4.8-10.8)
[2018-11-22] MEDS: Metoclopramide HCl 10 MG TAB PO ONE ×2 (23:52→23:53)
[2018-11-22] MEDS ORDERED: diphenhydrAMINE 50 MG CAP PO ONE (23:59)
[2018-11-23 00:06] LABS: ALT (SGPT) 15 U/L (8-55); AST (SGOT) 11 U/L (5-34); Albumin 3.6 g/dL (3.5-5.0); Alkaline Phosphatase 110 U/L (40-110); Anion Gap 11 mmol/L (10-20); BUN (Urea Nitrogen) 14 mg/dL (7.0-18.7); Bilirubin, Total Less than 0.2 mg/dL (0.2-1.2); Calc. Creatinine Clearance 0 mL/min (70-130); Calcium 9.3 mg/dL (7.8-10.44); Carbon Dioxide 29 mmol/L (22-29); Chloride 107 mmol/L (98-107); Estimated GFR-MDRD 83; Globulin 3.1 g/dL (2.4-3.5); Glucose 120 mg/dL (70-105); Protein, Total 6.7 g/dL (6.0-8.3); Sodium 143 mmol/L (136-145); Uric Acid 3.6 mg/dL (2.6-6.0)
[2018-11-23 00:12] LABS: Creatinine, Urine 107.77 mg/dL (47-110)
--- NOTE | 2018-11-23 02:37 | PDOC.FPROB ---
FMR OB H&P: HPI - History of Present Illness Chief Complaint: Headache Indentification: History of Present Illness: Mrs. Samson is a 28 y/o female who is 15D s/p LTCS who presents to L&D with a CC of headache. She has been having a headache continuously for the past 4 days, and has also notice associated symptoms of nausea, photophobia and decreasing milk production. Her blood pressures have also been elevated. She denies any fevers, chills, night sweats, auditory or visual disturbances, chest pain, SOB, increasing ABD pain, dysuria, bloody stools or swelling or numbness in her hands or feet. Primary Care Physician: Dr. Argelia Barrios ([facility]) FMR OB H&P: Current - Care : 2 Para: 2 - OB Labs Blood type: O RH: positive Antibody Screen: negative HIV: negative RPR: negative HepBsAg: negative Rubella: immune Quad screen: negative Urine drug screen: negative Gonorrhea: negative Chlamydia: negative Pap Smear: NILM GBS: negative FMR OB H&P: History - Past Medical History PMH: Chronic HTN, Pre-Gestational DM, Asthma, Depression, Obesity - OB History OB History: x2 - [employer] History [employer] History: Non-Contributory - Surgical History Sx History: x2 - Social History Social History: Denies x3 - Family History Family History: Mother (DM), Grandmother (DM) FMR OB H&P: Medications - Current Home Medications: Medication Instructions Recorded Confirmed Type Vitamin 1 tablet PO DAILY 04/11/18 11/02/18 History Sertraline HCl 50 mg PO DAILY 04/11/18 11/07/18 History Ferrous Sulfate [Feosol] 325 mg PO Q2DAYS #30 tab 11/11/18 Rx Ibuprofen [Motrin] 800 mg PO Q8HR #30 tab 11/11/18 Rx Insulin Detemir [Levemir] 12 unit SQ HS #1 vial 11/11/18 Rx Insulin Detemir [Levemir] 16 units SQ QAM #0 11/11/18 11/02/18 Rx Vitamin 1 tab PO DAILY tab 11/11/18 Rx Amlodipine [Norvasc] 2.5 mg PO DAILY 30 Days #30 tab 11/23/18 Rx Aspirin/Acetaminophen/Caffeine 2 tab PO DAILY PRN 30 Days #60 tab 11/23/18 Rx [Excedrin Migraine] Metoclopramide HCl [Reglan] 10 mg PO BID 30 Days #60 tab 11/23/18 Rx Allergies/Adverse Reactions: Allergies Allergy/AdvReac Type Severity Reaction Status Date / Time No Known Allergies Allergy Verified 11/02/18 13:21 FMR OB H&P: ROS - Review of Systems General: denies: fever/chills, night sweats, fatigue, recent trauma Eyes: denies: eye pain, vision changes ENT: denies: nasal congestion, rhinorrhea, frequent nose bleed, sinus pain/ pressure, ringing in ears Cardiovascular: denies: chest pain, edema Respiratory: denies: cough, congestion Gastrointestinal: denies: abdominal pain, vomiting, diarrhea, constipation Genitourinary (Female): reports: vaginal bleeding. denies: dysuria, hematuria, vaginal pain Musculoskeletal: denies: pain, stiffness, swelling Neurologic: reports: headache. denies: syncope, weakness, loss of counsciousness Integumentary: denies: lesions Breast: reports: other (Patient has noticed decreasing milk production) Psychological: reports: depression FMR OB H&P: Vital Signs - Maternal Vital signs: See Records in L&D FMR OB H&P: Physical Exam - Physical Exam General: NAD, awake, alert and oriented HEENT: normocephalic and atraumatic, PERRLA, EOMI, MMM, conjunctiva clear, no scleral icterus, grossly normal vision, grossly normal hearing, normal nasal mucosa, oropharynx clear, good dention, other (Patient demonstrated severe photosensitivity) Neck: supple, FROM, trachea midline, no LAD Chest: non-tender to palpation, no lesions Breast: symmetric, no nipple discharge Heart: RRR, normal S1/S2, no murmurs/rubs/gallops, pulses present, no edema General: CTAB, no respiratory distress, good air movement, no rales/rhonchi, no wheezing, no retractions Abdomen: soft, bowel sound present Musculoskeletal: pulses present, FROM in all four extremities, no misalignment/ asymmetry, no atrophy Neurological: sensation to pain,touch and proprioception grossly normal, no tremor, no focal deficit Skin: no rash, no jaundice Lymphatic: no unusual bruising or bleeding, no purpura, no petechia, no LAD Psychiatric: intact recent and remote memory, good judgement and insight, normal mood and affect FMR OB H&P: Results - Labs Lab results: Laboratory Results - last 24 hr 11/22/18 11/22/18 11/22/18 23:36 23:36 23:44 WBC 7.4 RBC 3.88 L Hgb 9.8 L Hct 30.6 L MCV 79.0 MCH 25.3 L MCHC 32.0 RDW 13.5 Plt Count 467 H MPV 7.3 L Neutrophils % 50.8 Lymphocytes % 38.3 Monocytes % 5.6 Eosinophils % 3.9 Basophils % 1.3 H Neutrophils # 3.7 Lymphocytes # 2.8 Monocytes # 0.4 Eosinophils # 0.3 Basophils # 0.1 Sodium 143 Potassium 4.0 Chloride 107 Carbon Dioxide 29 Anion Gap 11 BUN 14 Creatinine 0.82 Estimated GFR (MDRD) 83 Glucose 120 H Uric Acid 3.6 Calcium 9.3 Total Bilirubin Less than 0.2 L AST 11 ALT 15 Alkaline Phosphatase 110 Serum Total Protein 6.7 Albumin 3.6 Globulin 3.1 Albumin/Globulin Ratio 1.2 U Random Total Protein 10 Urine Creatinine 107.77 FMR OB H&P: A/P - Problem List (1) Chronic hypertension Status: Acute Code(s): I10 - ESSENTIAL (PRIMARY) HYPERTENSION (2) Body mass index (BMI) 50-59.9, adult Status: Chronic Code(s): Z68.43 - BODY MASS INDEX (BMI) 50.0-59.9, ADULT (3) Depression affecting Status: Chronic Code(s): O99.340 - OTH MENTAL DISORDERS COMPLICATING , UNSP TRIMESTER; F32.9 - MAJOR DEPRESSIVE DISORDER, SINGLE EPISODE, UNSPECIFIED Disposition: 1. Chronic HTN w/ Concern for Pre-Eclampsia -Elevated BP and continuous headaches in a patient is concerning for Atypical Pre-Eclampsia -Decreased milk production may be indicative of vasoconstriction associated w/ Pre-Eclampsia -Monitor patient on L&D w/ Q15M BP and Neuro checks -CBC: Pending -CMP: Pending -Uric Acid: Pending -Urine Protein: Pending -Urine Creatinine: Pending 2. Depression -Patient appears stable and does not endorse SI/HI -Hold home medication regimen 3. Obesity -NPO 4. Asthma -Patient not currently endorsing dyspnea or SOB -Respiratory exam unremarkable -Hold home medication regimen Code: Full Diet: NPO Activity: Strict Bed Rest DVT PPx: Not Required Dispo: Monitor Patient on L&D for 4H w/ Q15M BP and neuro checks. Await laboratory analysis and adjust plan accordingly. Consider Mg and hospital admission if Pre-Eclampsia appears likely. Expected LOS < 4H. Discussion: Date/Time: 11/23/18231 This H&P was discussed with [] and [] who agree with the above documentation and plan. Addendum - Attending - Attending Attestation Date/Time: 11/23/18313 I personally evaluated the patient and discussed the management with Dr. Penaloza and Dr. Mcneil I agree with the History, Examination, Assessment and Plan documented above with any addition or exceptions noted below. Monitor for superimposed pp preeclampsia vs uncontrolled cHTN and migraine headache. Patient with baby still in NICU. Increased stress. Not on BP medication. Will monitor for 4 hours. Labs reviewed and negative. Ok to d/c home after treatment for headache. Start BP medication. Would use CCB due to breast feeding. Follow up with PCP next week. Fahad
== END 2018-11-23 03:40 | disposition home or self-care (01) ==
LOC: L&D/OP 22:43
PROVIDERS: ATTEND Student in an Organized Health Care Education/Training Program
DX: O10.93 Unspecified pre-existing hypertension complicating the puerperium (principal); O99.89 Other specified diseases and conditions complicating pregnancy, childbirth and the puerperium; R51 Headache; O24.33 Unspecified pre-existing diabetes mellitus in the puerperium; E11.9 Type 2 diabetes mellitus without complications; O99.215 Obesity complicating the puerperium; E66.9 Obesity, unspecified; O99.345 Other mental disorders complicating the puerperium; F53.0 Postpartum depression; O99.53 Diseases of the respiratory system complicating the puerperium; J45.909 Unspecified asthma, uncomplicated; Z79.899 Other long term (current) drug therapy
CPT/HCPCS: 36415; 80053; 82570; 84156; 84550; 85025; Q0163